=== PATIENT | female | born 1990 | race Caucasian/White ===

== ENCOUNTER 2017-01-17 22:39 | Emergency (ER) | payer BC, OTHER ==
[~2017-01-17] VITALS: Ht 154.9 cm; Wt 63.3 kg
--- OUTSIDE RECORDS SUMMARY | 2017-01-17 22:45 | XMS REPORT | Summary of Care ---
Author Organization Unknown Address Unknown Phone Unavailable Care Team Providers Care Rn Gastroenterology Name Role Phone Neeru Billy, Neville Unavailable Unavailable Marbella Oliveira PP Unavailable Unavailable Unavailable Functional Status Functional Status Health Issues* Name Dates Details Functional status health issues are not documented Status: Cognitive Status Health Issues* Name Dates Details Cognitive status health issues are not documented Status: Problems Name Dates Details Acute sinusitis (461.9, J01.90) Status: Active Urinary tract infection (599.0, N39.0) Status: Active Asthma (493.90, J45.909) Status: Active Folliculitis (704.8, L73.9) Status: Active Bronchitis (490, J40) Status: Active Eczema (692.9, L30.9) Status: Active Anxiety (300.00, F41.9) Status: Active Lower back pain (724.2, M54.5) Status: Active Dyspepsia (536.8, K30) Status: Active Depression (311, F32.9) Status: Active Anemia (285.9, D64.9) Status: Active Menorrhagia (626.2, N92.0) Status: Active Exposure to the flu (V01.79, Z20.828) Status: Active Viral infection (079.99, B34.9) Status: Active Influenza (487.1, J11.1) Status: Active Medications Name Dates Details Mirena 20 MCG/24HR Intrauterine Intrauterine Device inserted Quantity: 1 Sung Siddiqi M.D.* Started 08-Feb-2013 ActiveCranberry 500 MG Oral Capsule TAKE DIRECTED. * Refills: 0 , * Started ActiveIron 325 (65 Fe) MG Oral Tablet TAKE 1 TABLET DAILY WITH FOOD. * Quantity: 30 Refills: 0 , * Started [facility] Vitamin B-12 1000 MCG Oral Tablet TAKE 1 TABLET DAILY DIRECTED. * Refills: 0 , * Started ActiveFiber 625 MG Oral Tablet USE DIRECTED. * Refills: 0 , * Started ActiveStool Softener 100 MG Oral Capsule TAKE 1 CAPSULE DAILY. * Refills: 0 , * Started Active Allergies and Adverse Reactions Name Dates Details Seasonale TABS Status: Active Past Medical History Name Dates Details History of allergic rhinitis (V12.69, Z87.09) Status: Resolved History of Asthma (493.90, J45.909) Status: Resolved History of Human papilloma virus infection (079.4, B97.7) Status: Resolved History of infectious mononucleosis (V12.09, Z86.19) Status: Resolved Procedures Procedure Dates Details History of Dental Surgery History of Obstetrical Surgery Completed:30-Dec-2012 Procedures not documented Immunization Name Dates Details Tdap (Adacel) Lot #: [id number] Administered on:12-Dec-2012 Family History Unknown Family Member* Name Dates Details Family history of Hereditary Hemolytic Spherocytosis Comments: Family History Status: Active Grandmother* Name Dates Details Family history of Smoking Cigarettes Status: Active Grandfather* Name Dates Details Family history of Acute Myocardial Infarction (V17.3) Status: Active Family history of Stroke Syndrome (V17.1) Status: Active Family history of Epilepsy And Recurrent Seizures (V17.2) Status: Active Grandmother* Name Dates Details Family history of Renal Disorder Status: Active Family history of Tuberculosis Status: Active Family history of Heart Disease (V17.49) Status: Active Mother* Name Dates Details Family history of Drug Dependence Status: Active Family history of Stroke Syndrome (V17.1) Status: Active Family history of Epilepsy And Recurrent Seizures (V17.2) Status: Active Family history of Essential Hypertension Status: Active Father* Name Dates Details Family history of Tuberculosis Status: Active Family history of Hypercholesterolemia Status: Active Grandfather* Name Dates Details Family history of Acute Myocardial Infarction (V17.3) Status: Active Family history of Alcoholism Status: Active Social History Name Dates Details Smoking Status* Former smoker * Never smoker Vital Signs Date Test Result Details 21-Oct-2014 10:19 BP Systolic 102 mm[Hg] Status: BP Diastolic 70 mm[Hg] Status: Heart Rate 88 /min Status: Temperature 98.2 f Status: Weight 138 lb Status: Results Date Description Value Details 21-Oct-2014 10:47 INFLUENZA A/B ANTIGEN 5320 Comments: *Negative results do not exclude Influenza viral infection and could be confirmed with viral culture or Influenza molecular assays. Physician order would be required. * *INFLUENZA A/B ANTIGEN Negative (Better) Range: Negative Plan of Care Planned Observations* Name Dates Details Planned Goals not documented Goal Instructions * Instructions not documented Encounters Appointment; Marbella Oliveira Encounter Diagnosis: Problem not documented On 21-Oct-2014 10:15 Appointment; Marbella Oliveira Encounter Diagnosis: Problem not documented On 30-May-2014 14:00 Appointment; Marbella Oliveira Encounter Diagnosis: Problem not documented On 25-Feb-2014 15:30 Appointment; Marbella Oliveira Encounter Diagnosis: Problem not documented On 11-Feb-2014 11:30 Appointment; Marbella Oliveira Encounter Diagnosis: Problem not documented On 17-Dec-2013 15:15 Appointment; Irvin Son Encounter Diagnosis: Problem not documented On 11-Dec-2013 12:30 Appointment; Irvin Son Encounter Diagnosis: Problem not documented On 04-Dec-2013 12:30 Appointment; Irvin Son Encounter Diagnosis: Problem not documented On 23-Nov-2013 09:00 Appointment; Irvin Son Encounter Diagnosis: Problem not documented On 19-Nov-2013 12:30 Appointment; Marbella Oliveira Encounter Diagnosis: Problem not documented On 08-Nov-2013 14:45 Appointment; Marbella Oliveira Encounter Diagnosis: Problem not documented On 22-Oct-2013 13:00 Appointment; Marbella Oliveira Encounter Diagnosis: Problem not documented On 03-Sep-2013 14:15 Appointment; Marbella Oliveira Encounter Diagnosis: Problem not documented On 06-Aug-2013 10:00 Appointment; Marbella Oliveira Encounter Diagnosis: Problem not documented On 19-Jul-2013 13:00 Appointment; Sanjeev Vargas Encounter Diagnosis: Problem not documented On 27-Jun-2013 09:30 Appointment; Marbella Oliveira Encounter Diagnosis: Problem not documented On 07-Jun-2013 13:00 Appointment; Marbella Oliveira Encounter Diagnosis: Problem not documented On 15:45 Appointment; Marbella Oliveira Encounter Diagnosis: Problem not documented On 05-Mar-2013 14:30 Appointment; Sung Siddiqi Encounter Diagnosis: Problem not documented On 08-Feb-2013 14:45 Appointment; Marbella Oliveira Encounter Diagnosis: Problem not documented On 06-Feb-2013 15:00 Appointment; Vibha Aguirre Encounter Diagnosis: Problem not documented On 29-Jan-2013 16:40 Appointment; Sung Siddiqi Encounter Diagnosis: Problem not documented On 26-Dec-2012 13:15 Appointment; Sung Siddiqi Encounter Diagnosis: Problem not documented On 19-Dec-2012 13:15 Appointment; Sung Siddiqi Encounter Diagnosis: Problem not documented On 12-Dec-2012 13:00 Appointment; Sung Siddiqi Encounter Diagnosis: Problem not documented On 28-Nov-2012 13:15 Appointment; Sung Siddiqi Encounter Diagnosis: Problem not documented On 13-Nov-2012 14:30
--- OUTSIDE RECORDS SUMMARY | 2017-01-17 22:46 | XMS REPORT | Summary of Care ---
Author Author Sung Siddiqi M.D. Organization Unknown Address [address] [place], [place] [address] Phone Unavailable Care Team Providers Care Director Digital Catalogue Name Role Phone Neville Siddiqi M.D. Unavailable Unavailable Marbella Oliveira PP Unavailable Unavailable Unavailable Functional Status Functional Status Health Issues* Name Dates Details Functional status health issues are not documented Status: Cognitive Status Health Issues* Name Dates Details Cognitive status health issues are not documented Status: Problems Name Dates Details Asthma (493.90, J45.909) Status: Active Depression (311, F32.9) Status: Active Hyperemesis gravidarum, antepartum (643.03, O21.0) Status: Active Supervision of normal , second trimester (V22.1, Z34.82) Status: Active Vaginal Discharge (623.5, N89.8) Status: Active Shortness of breath during (646.83, O99.89) Status: Active 20 weeks gestation of (V22.2, Z3A.20) Status: Active Medications Name Dates Details /Folic Acid Oral Tablet TAKE 1 TABLET DAILY. Quantity: 30 Sung Siddiqi M.D.* Started 10-Jul-2015 Active Allergies and Adverse Reactions Name Dates Details No Known Drug Allergies Status: Active Past Medical History Name Dates Details History of acute sinusitis (V12.69, Z87.09) Status: Resolved History of allergic rhinitis (V12.69, Z87.09) Status: Resolved History of anemia (V12.3, Z86.2) Status: Resolved History of Anxiety (300.00, F41.9) Status: Resolved History of Asthma (493.90, J45.909) Status: Resolved History of bronchitis (V12.69, Z87.09) Status: Resolved History of Dyspepsia (536.8, K30) Status: Resolved History of eczema (V13.3, Z87.2) Status: Resolved History of Exposure to the flu (V01.79, Z20.828) Status: Resolved History of folliculitis (V13.3, Z87.2) Status: Resolved History of Human papilloma virus infection (079.4, B97.7) Status: Resolved History of infectious mononucleosis (V12.09, Z86.19) Status: Resolved History of influenza (V12.09, Z87.09) Status: Resolved History of low back pain (V13.59, Z87.39) Status: Resolved History of menorrhagia (V13.29, Z87.42) Status: Resolved History of urinary tract infection (V13.02, Z87.440) Status: Resolved History of viral infection (V12.09, Z86.19) Status: Resolved Procedures Procedure Dates Details History of Dental Surgery History of Obstetrical Surgery Completed:30-Dec-2012 Vaginitis Panel ( Trichomonas, Gardnerella, Kristen sp.) 5615 Ordered:2015 CBC w/ Auto Diff 7150 Ordered:23-Dec-2015 FERRITIN 3025 Ordered:23-Dec-2015 OB Dept- Ultrasound Screening Ordered:11-Nov-2015 Immunization Name Dates Details Tdap (Adacel) Lot #: [id number] Administered on:12-Dec-2012 Fluzone Intramuscular Injectable Lot #: [id number] Administered on:21-Aug-2015 Family History Unknown Family Member* Name Dates [...] smoker Vital Signs Date Test Result Details 23-Dec-2015 15:53 BP Systolic 102 mm[Hg] Status: BP Diastolic 64 mm[Hg] Status: Weight 138 lb Status: Body Mass Index Calculated 26.95 kg/m2 Status: Body Surface Area Calculated 1.59 m2 Status: 09-Dec-2015 11:00 BP Systolic 102 mm[Hg] Status: BP Diastolic 58 mm[Hg] Status: Weight 137 lb Status: Body Mass Index Calculated 26.76 kg/m2 Status: Body Surface Area Calculated 1.59 m2 Status: Results Date Description Value Details Results not documented Plan of Care Planned Observations* Name Dates Details Planned Goals not documented Goal Planned Encounters* Appointment; Provider: Sung Siddiqi On 15-Jul-2016 10:15 * Appointment; Provider: Sung Siddiqi On 03-Feb-2016 10:30 * Appointment; Provider: Sung Siddiqi On 20-Jan-2016 10:30 * Appointment; Provider: Marbella Oliveira On 30-Dec-2015 11:15 Instructions * Instructions not documented Encounters Appointment; Sung Siddiqi Encounter Diagnosis: Problem not documented On 23-Dec-2015 15:30 Appointment; Sung Siddiqi Encounter Diagnosis: Problem not documented On 09-Dec-2015 10:45 Appointment; Sung Siddiqi Encounter Diagnosis: Problem not documented On 11-Nov-2015 10:30 Appointment; Sung Siddiqi Encounter Diagnosis: Problem not documented On 28-Oct-2015 10:45 Appointment; Sung Siddiqi Encounter Diagnosis: Problem not documented On 14-Oct-2015 11:15 Appointment; Sung Siddiqi Encounter Diagnosis: Problem not documented On 09-Sep-2015 08:30 Appointment; Marbella Oliveira Encounter Diagnosis: Problem not documented On 21-Aug-2015 08:15 Appointment; Sung Siddiqi Encounter Diagnosis: Problem not documented On 10-Jul-2015 10:00 Appointment; Marbella Oliveira Encounter Diagnosis: Problem not documented On 21-Oct-2014 10:15 Appointment; Marbella Oliveira Encounter Diagnosis: Problem not documented On 30-May-2014 14:00 Appointment; Marbella Oliveira Encounter Diagnosis: Problem not documented On 25-Feb-2014 15:30 Appointment; Marbella Oliveira Encounter Diagnosis: Problem not documented On 11-Feb-2014 11:30
--- OUTSIDE RECORDS SUMMARY | 2017-01-17 22:46 | XMS REPORT | Summary of Care ---
Author Author Marbella Oliveira M.D. Organization Unknown Address Unknown Phone Unavailable Care Team Providers Care Slat Basket Maker Name Role Phone Marbella Oliveira Unavailable Unavailable Unavailable Unavailable Functional Status Functional Status Health Issues* Name Dates Details No known functional status health issues Status: Cognitive Status Health Issues* Name Dates Details No known cognitive status health issues Status: Problems Name Dates Details Acute sinusitis [...] Status: Active Menorrhagia (626.2, N92.0) Status: Active Medications Name Dates Details Mirena 20 MCG/24HR Intrauterine Intrauterine Device inserted Quantity: 1 EA * Started 08-Feb-2013 ActiveCranberry 500 MG Oral Capsule TAKE DIRECTED. * Refills: 0 * Started ActiveIron 325 (65 Fe) MG Oral Tablet TAKE 1 TABLET DAILY WITH FOOD. * Quantity: 30 Tablet Refills: 0 * Started [facility] Vitamin B-12 1000 MCG Oral Tablet TAKE 1 TABLET DAILY DIRECTED. * Refills: 0 * Started ActiveFiber 625 MG Oral Tablet USE DIRECTED. * Refills: 0 * Started ActiveStool Softener 100 MG Oral Capsule TAKE 1 CAPSULE DAILY. * Refills: 0 * Started ActiveSertraline HCl - 50 MG Oral Tablet TAKE 1 TABLET DAILY. * Quantity: 30 Tablet Refills: 3 * Started 08-Nov-2013 Active Allergies and Adverse Reactions Name Dates Details Seasonale TABS Status: Active Past Medical History Name Dates Details History of allergic rhinitis (V12.69, Z87.09) Status: Resolved History of infectious mononucleosis (V12.09, Z86.19) Status: Resolved Asthma (493.90, J45.909) Status: Resolved Human papilloma virus infection (079.4, B97.7) Status: Resolved Procedures Procedure Dates Details Dental Surgery Obstetrical Surgery Completed:30-Dec-2012 Procedures not documented Immunization Name Dates Details Tdap (Adacel) Lot #: [id number] Administered on:12-Dec-2012 Family History Unknown Family Member* Name Dates Details Hereditary Hemolytic Spherocytosis Comments: Family History Status: Active Grandmother* Name Dates Details Smoking Cigarettes Status: Active Grandfather* Name Dates Details Acute Myocardial Infarction (V17.3) Status: Active Stroke Syndrome (V17.1) Status: Active Epilepsy And Recurrent Seizures (V17.2) Status: Active Grandmother* Name Dates Details Renal Disorder Status: Active Tuberculosis Status: Active Heart Disease (V17.49) Status: Active Mother* Name Dates Details Drug Dependence Status: Active Stroke Syndrome (V17.1) Status: Active Epilepsy And Recurrent Seizures (V17.2) Status: Active Essential Hypertension Status: Active Father* Name Dates Details Tuberculosis Status: Active Hypercholesterolemia Status: Active Grandfather* Name Dates Details Acute Myocardial Infarction (V17.3) Status: Active Alcoholism Status: Active Social History Name Dates Details Former smoker (V15.82, Z87.891) Never smoker Smoking Status* Former smoker * Never smoker Vital Signs Date Test Result Details 25-Feb-2014 15:29 BP Systolic 105 mm[Hg] Status: BP Diastolic 64 mm[Hg] Status: Heart Rate 74 /min Status: Respiration Rate 18 /min Status: Weight 144 lb Status: Results Date Description Value Details Resulted on: 25-Feb-2014 16:35 CBC w/ Auto Diff 7150 Comments: Manual differential indicated. WBC 6.0 K/uL Range: 4.5-11.0=Better RBC 4.18 mil/uL Range: 3.60-5.00=Better HGB 12.9 g/dL Range: 12.0-16.0=Better HCT 39.0 % Range: 36.0-48.0=Better MCV 93.3 fL Range: 80.0-99.0=Better MCH 30.8 pg Range: 27.3-32.5=Better MCHC 33.0 % Range: 32.0-36.0=Better RDW 12.5 % Range: 11.6-14.8=Better PLATELETS 297 K/uL Range: 150-400=Better MPV 9.1 fL Range: 6.0-11.0=Better 16:42 BASIC METABOLIC PROFILE 1210 SODIUM 139 mmol/L Range: 133-144=Better POTASSIUM 3.9 mmol/L Range: 3.5-5.1=Better CHLORIDE 106 mmol/L Range: 98-110=Better CARBON DIOXIDE 26.1 mmol/L Range: 23.0-33.0=Better ANION GAP 7 mmol/L Range: 6-16=Better BUN 9 mg/dL Range: 7-18=Better CREATININE, SERUM 0.66 mg/dL Range: 0.43-1.13=Better EST GFR, >60 ml/min Range: >60=Better EST GFR, NON-AFR URUGUAYAN >60 ml/min Range: >60=Better Comments: EST GFR is reported in ml/min per 1.73 m2 of body surface area. For -[place], please multiple result by 1.2.----- BUN:CREATININE RATIO 14 Better GLUCOSE 92 mg/dL Range: 70-100=Better CALCIUM 8.9 mg/dL Range: 8.5-10.1=Better 17:02 Manual Differential 7400 SEGS 49 % Range: 37-80=Better BANDS 0 % Range: 0-7=Better LYMPH 42 % Range: 13-50=Better MONO 5 % Range: 0-12=Better EOSIN 4 % Range: 0-7=Better BASO 0 % Range: 0-3=Better DUC LYMPH 0 % Range: 0-0=Better META 0 % Range: 0-0=Better MYELO 0 % Range: 0-0=Better PRO 0 % Range: 0-0=Better BLAST 0 % Range: 0-0=Better NUC RBC 0 /100 WBC Range: 0-0=Better SMUDGE 0 /100 WBC Better PLATELET Adequate Range: Adequate=Better 17:04 FERRITIN 3025 FERRITIN 32 ng/mL Range: 10-291=Better 17:04 THYROID STIM. HORMONE 3602 THYROID STIM. HORMONE 1.409 uIU/mL Range: 0.550-4.780=Better Comments: No established reference ranges for infants and children <2 years of agePlease note new reference ranges effective 2013.----- 17:24 Vaginitis Panel ( Trichomonas, Gardnerella, Kristen sp.) 5615 T. VAGINALIS PROBE Negative Range: Negative=Better GARDNERELLA PROBE Negative Range: Negative=Better KRISTEN SP. PROBE Negative Range: Negative=Better Plan of Care Instructions* Instructions not documented Planned Observations* Name Dates Details Planned Goals not documented Goal Planned Encounters* Appointment; Provider: Marbella Oliveira On 30-May-2014 14:00 Instructions * No Known Instructions Encounters Appointment; Marbella Oliveira Diagnosis: Problem not documented On 25-Feb-2014 15:30 Appointment; Marbella Oliveira Diagnosis: Problem not documented On 11-Feb-2014 11:30 Appointment; Marbella Oliveira Diagnosis: Problem not documented On 17-Dec-2013 15:15 Appointment; Irvin Son Encounter Diagnosis: Problem not documented On 11-Dec-2013 12:30 Appointment; Irvin Son Encounter Diagnosis: Problem not documented On 04-Dec-2013 12:30 Appointment; Irvin Son Diagnosis: Problem not documented On 23-Nov-2013 09:00 Appointment; Irvin Son Encounter Diagnosis: Problem not documented On 19-Nov-2013 12:30 Appointment; Marbella Oliveira Diagnosis: Problem not documented On 08-Nov-2013 14:45 Appointment; Marbella Oliveira Encounter Diagnosis: Problem not documented On 22-Oct-2013 13:00 Appointment; Marbella Oliveira Encounter Diagnosis: Problem not documented On 03-Sep-2013 14:15 Appointment; Marbella Oliveira Encounter Diagnosis: Problem not documented On 06-Aug-2013 10:00 Appointment; Marbella Oliveira Diagnosis: Problem not documented On 19-Jul-2013 13:00 [...] Diagnosis: Problem not documented On 13-Nov-2012 14:30 Appointment; Marbella Oliveira Encounter Diagnosis: Problem not documented On 30-Oct-2012 14:00 Appointment; Sung Siddiqi Encounter Diagnosis: Problem not documented On 23-Oct-2012 10:30 Appointment; Sung Siddiqi Encounter Diagnosis: Problem not documented On 21-Sep-2012 13:30 Appointment; Sung Siddiqi Encounter Diagnosis: Problem not documented On 13-Sep-2012 14:30 Appointment; Sung Siddiqi Encounter Diagnosis: Problem not documented On 06-Sep-2012 13:00 Appointment; Sung Siddiqi Encounter Diagnosis: Problem not documented On 31-Aug-2012 13:30 Appointment; Sung Siddiqi Encounter Diagnosis: Problem not documented On 22-Aug-2012 11:00 Appointment; Sung Siddiqi Encounter Diagnosis: Problem not documented On 15-Aug-2012 13:45 Appointment; Sung Siddiqi Encounter Diagnosis: Problem not documented On 07-Aug-2012 13:30 Appointment; Sung Siddiqi Encounter Diagnosis: Problem not documented On 31-Jul-2012 14:15 Appointment; Vidhi Melendez Encounter Diagnosis: Problem not documented On 31-Jul-2012 11:00 Appointment; Sung Siddiqi Encounter Diagnosis: Problem not documented On 27-Jul-2012 14:30 Appointment; Sung Siddiqi Encounter Diagnosis: Problem not documented On 06-Jul-2012 14:30 Appointment; Wiliam Groves Encounter Diagnosis: Problem not documented On 30-Jun-2012 08:30 Appointment; Sung Siddiqi Encounter Diagnosis: Problem not documented On 29-Jun-2012 13:30 Appointment; Marbella Oliveira Encounter Diagnosis: Problem not documented On 19-Jun-2012 10:00 Appointment; Sung Siddiqi Encounter Diagnosis: Problem not documented On 31-May-2012 14:00 Appointment; Sung Siddiqi Encounter Diagnosis: Problem not documented On 09:00
--- OUTSIDE RECORDS SUMMARY | 2017-01-17 22:46 | XMS REPORT | Summary of Care ---
Author Author Sung Siddiqi M.D. Organization Unknown Address [address], [place] [address] Phone Unavailable Care Team Providers Care Staff Scientist Name Role Phone Neville Siddiqi M.D. Unavailable [...] Hyperemesis gravidarum, antepartum (643.03, O21.0) Status: Active Abnormal ultrasonic finding on screening of mother, antepartum (796.5 , O28.3) Status: Active Shortness of breath during (646.83, O99.89) Status: Active Supervision of normal , third trimester (V22.1, Z34.83) Status: Active Medications Name Dates Details /Folic [...] Dental Surgery History of Obstetrical Surgery Completed:30-Dec-2012 CBC w/ Auto Diff 7150 Ordered:16-Feb-2016 HEMOGLOBIN A1C 3507 Ordered:17-Feb-2016 Immunization Name Dates Details Tdap (Adacel) Lot #: [id number] Administered on:12-Dec-2012 Fluzone Intramuscular Injectable Lot #: [id number] Administered on:21-Aug-2015 Family History Unknown Family Member* [...] smoker Vital Signs Date Test Result Details 03-Feb-2016 10:36 BP Systolic 108 mm[Hg] Status: BP Diastolic 68 mm[Hg] Status: Weight 148 lb Status: Body Mass Index Calculated 28.9 kg/m2 Status: Body Surface Area Calculated 1.64 m2 Status: 27-Jan-2016 11:30 BP Systolic 108 mm[Hg] Status: BP Diastolic 62 mm[Hg] Status: Weight 142 lb Status: Body Mass Index Calculated 27.73 kg/m2 Status: Body Surface Area Calculated 1.61 m2 Status: Results Date Description Value Details 03-Feb-2016 10:35 OB Dept- Ultrasound Limited 2nd Trimester Comments: Exam Date: 02/03/2016 10:04Dictation Date: 02/03/2016 10:35 XOB GROWTH LTD EXAM (Better) Plan of Care Planned Observations* Name Dates Details Planned Goals not documented Goal Planned Encounters* Appointment; Provider: Sung Siddiqi On 15-Jul-2016 10:15 Instructions * Instructions not documented Encounters Appointment; Sung Siddiqi Encounter Diagnosis: Problem not documented On 17-Feb-2016 10:30 Appointment; Sung Siddiqi Encounter Diagnosis: Problem not documented On 03-Feb-2016 10:30 Appointment; Sung Siddiqi Encounter Diagnosis: Problem not documented On 27-Jan-2016 11:15 Appointment; Marbella Oliveira Encounter Diagnosis: Problem not documented On 27-Jan-2016 10:00 Appointment; Marbella Oliveira Encounter Diagnosis: Problem not documented On 30-Dec-2015 11:15 Appointment; Sung Siddiqi Encounter Diagnosis: Problem [...]
--- OUTSIDE RECORDS SUMMARY | 2017-01-17 22:46 | XMS REPORT | Summary of Care ---
Author Author Sung Siddiqi M.D. Organization Unknown Address [address], [place] [id number] Phone Unavailable Care Team Providers Care Green Chain Worker Name Role Phone Neville Siddiqi M.D. Unavailable [...] ( Trichomonas, Gardnerella, Kristen sp.) 5615 Ordered:2015 FERRITIN 3025 Ordered:23-Dec-2015 OB Dept- Ultrasound Screening Ordered:11-Nov-2015 Immunization Name Dates Details Tdap (Adacel) Lot #: [id number] Administered on:12-Dec-2012 Fluzone Intramuscular Injectable Lot #: [id number] Administered on:21-Aug-2015 Family History Unknown Family Member* [...] m2 Status: Results Date Description Value Details 23-Dec-2015 16:46 CBC w/ Auto Diff 7150 WBC 8.3 K/uL (Better) Range: 4.5-11.0 RBC 3.76 mil/uL (Better) Range: 3.60-5.00 HGB 12.0 g/dL (Better) Range: 12.0-16.0 HCT 34.2 % (Below low threshold) Range: 36.0-48.0 MCV 91.1 fL (Better) Range: 80.0-99.0 MCH 32.0 pg (Better) Range: 27.3-32.5 MCHC 35.1 % (Better) Range: 32.0-36.0 RDW 13.0 % (Better) Range: 11.6-14.8 PLATELETS 276 K/uL (Better) Range: 150-400 MPV 8.3 fL (Better) Range: 6.0-11.0 %NEUTRO 72.0 % (Better) Range: 37.0-80.0 %LYMPHS 20.6 % (Better) Range: 13.0-50.0 %MONO 4.4 % (Better) Range: 0.0-12.0 %EOS 1.7 % (Better) Range: 0.0-7.0 %BASO 0.3 % (Better) Range: 0.0-2.5 %JEYSON 1.1 % (Better) Range: 0.0-5.0 NEUTRO 6.0 K/uL (Better) Range: 2.0-6.9 LYMPHS 1.7 K/uL (Better) Range: 0.6-3.4 MONOS 0.4 K/uL (Better) Range: 0.0-0.9 EOS 0.1 K/uL (Better) Range: 0.0-0.7 BASO 0.0 K/uL (Better) Range: 0.0-0.2 Plan of Care Planned Observations* Name Dates Details Planned Goals not documented Goal Planned Encounters* Appointment; Provider: Sugn Siddiqi On 15-Jul-2016 10:15 * Appointment; Provider: [...]
--- OUTSIDE RECORDS SUMMARY | 2017-01-17 22:46 | XMS REPORT | Summary of Care ---
Author Author Sung Siddiqi M.D. Organization Unknown Address Unknown Phone Unavailable Care Team Providers Care Hotel Maintenance Engineer Name Role Phone Neville Siddiqi M.D. Unavailable Unavailable OliveiraMarbella Unavailable Unavailable Unavailable Unavailable Functional Status Name Dates Details Functional status health issues are not documented Status: Name Dates Details Cognitive status health issues are not documented Status: Problems Name Dates Details Asthma (493.90, J45.909) Status: Active Depression (311, F32.9) Status: Active exam (V24.2, Z39.2) Status: Active Medications Name Dates Details /Folic Acid TABS TAKE 1 TABLET DAILY. Quantity: 30 Neeru Billy, Sung Lozada * Start 10-Jul-2015 Active Allergies and Adverse Reactions Name Dates Details No Known Drug Allergies (Allergy) Status: Active Past Medical History Name Dates [...] of Dental Surgery History of Obstetrical Surgery Completed: 30-Dec-2012 Procedures not documented Immunization Name Dates Details Tdap (Adacel) Lot #: [id number] on: 12-Dec-2012 Fluzone INJ Lot #: [id number] on: 21-Aug-2015 Tdap (Adacel) Lot #: [id number] on: 17-Feb-2016 Family History Name Dates Details Family history of Hereditary Hemolytic Spherocytosis Comments: Family History Status: Active Name Dates Details Family history of Smoking Cigarettes Status: Active Name Dates Details Family history of Acute Myocardial Infarction (V17.3) Status: Active Family history of Stroke Syndrome (V17.1) Status: Active Family history of Epilepsy And Recurrent Seizures (V17.2) Status: Active Name Dates Details Family history of Renal Disorder Status: Active Family history of Tuberculosis Status: Active Family history of Heart Disease (V17.49) Status: Active Name Dates Details Family history of Drug Dependence Status: Active Family history of Stroke Syndrome (V17.1) Status: Active Family history of Epilepsy And Recurrent Seizures (V17.2) Status: Active Family history of Essential Hypertension Status: Active Name Dates Details Family history of Tuberculosis Status: Active Family history of Hypercholesterolemia Status: Active Name Dates Details Family history of Acute Myocardial Infarction (V17.3) Status: Active Family history of Alcoholism Status: Active Social History Name Dates Details - Status: Name Dates Details Former smoker Never smoker Vital Signs Date Test Result Details 17-Jun-2016 14:24 BP Systolic 122 mm[Hg] Status: Comments: Location: ; Position: BP Diastolic 78 mm[Hg] Status: Comments: Location: ; Position: Weight 142 lb Status: Body Mass Index Calculated 27.73 kg/m2 Status: Body Surface Area Calculated 1.61 m2 Status: Results Date Description Value Details Results not documented Plan of Care Name Dates Details Planned Observations Planned Goals not documented Planned Encounters Appointment; Provider: Sung Siddiqi M.D. On 20-Jun-2017 14:45 Instructions Name Dates Details Instructions not documented Encounters Appointment; Sung Siddiqi M.D. Encounter Diagnosis: Problem not documented On 13:00 Appointment; Sung Siddiqi M.D. Encounter Diagnosis: Problem not documented On 10:45 Appointment; Sung Siddiqi M.D. Encounter Diagnosis: Problem not documented On 10:45 Appointment; Sung Siddiqi M.D. Encounter Diagnosis: Problem not documented On 10:30 Appointment; Sung Siddiqi M.D. Encounter Diagnosis: Problem not documented On 10:30 Appointment; Sung Siddiqi M.D. Encounter Diagnosis: Problem not documented On 16-Mar-2016 10:30 Appointment; Sung Siddiqi M.D. Encounter Diagnosis: Problem not documented On 17-Feb-2016 10:30 Appointment; Sung Siddiqi M.D. Encounter Diagnosis: Problem not documented On 03-Feb-2016 10:30 Appointment; Sung Siddiqi M.D. Encounter Diagnosis: Problem not documented On 27-Jan-2016 11:15 Appointment; Marbella Oliveira M.D. Encounter Diagnosis: Problem not documented On 27-Jan-2016 10:00 Appointment; Marbella Oliveira M.D. Encounter Diagnosis: Problem not documented On 30-Dec-2015 11:15 Appointment; Sung Siddiqi M.D. Encounter Diagnosis: Problem not documented On 23-Dec-2015 15:30 Appointment; Sung Siddiqi M.D. Encounter Diagnosis: Problem not documented On 09-Dec-2015 10:45 Appointment; Sung Siddiqi M.D. Encounter Diagnosis: Problem not documented On 11-Nov-2015 10:30 Appointment; Sung Siddiqi M.D. Encounter Diagnosis: Problem not documented On 28-Oct-2015 10:45 Appointment; Sung Siddiqi M.D. Encounter Diagnosis: Problem not documented On 14-Oct-2015 11:15 Appointment; Sung Siddiqi M.D. Encounter Diagnosis: Problem not documented On 09-Sep-2015 08:30 Appointment; Marbella Oliveira M.D. Encounter Diagnosis: Problem not documented On 21-Aug-2015 08:15 Appointment; Sung Siddiqi M.D. Encounter Diagnosis: Problem not documented On 10-Jul-2015 10:00 Appointment; Marbella Oliveira M.D. Encounter Diagnosis: Problem not documented On 21-Oct-2014 10:15
--- OUTSIDE RECORDS SUMMARY | 2017-01-17 22:46 | XMS REPORT | Summary of Care ---
Author Author Sung Siddiqi M.D. Organization Unknown Address [address] [place], [place] [id number] Phone Unavailable Care Team Providers Care Design Coordinator Name Role Phone Neville Siddiqi M.D. Unavailable Unavailable Marbella Oliveira PP Unavailable Unavailable Unavailable Functional Status Functional Status Health Issues* Name Dates Details Functional status health issues are not documented Status: Cognitive Status Health Issues* Name Dates Details Cognitive status health issues are not documented Status: Problems Name Dates Details Asthma (493.90, J45.909) Status: Active Depression (311, F32.9) Status: Active Medications Name Dates Details Mirena 20 MCG/24HR Intrauterine Intrauterine Device inserted Quantity: 1 Sung Siddiqi M.D.* Started 08-Feb-2013 Active Allergies and Adverse Reactions Name Dates [...] Z87.09) Status: Resolved History of Dyspepsia (536.8, R10.13) Status: Resolved History of eczema (V13.3, Z87.2) [...] Name Dates Details Tdap (Adacel) Lot #: [id number] Administered on:12-Dec-2012 Family History Unknown Family Member* [...] smoker Vital Signs Date Test Result Details 10-Jul-2015 10:02 BP Systolic 108 mm[Hg] Status: BP Diastolic 62 mm[Hg] Status: Height 60.25 in Status: Weight 135 lb Status: Body Mass Index Calculated 26.15 kg/m2 Status: Body Surface Area Calculated 1.58 m2 Status: Results Date Description Value Details [...] Problem not documented On 06-Aug-2013 10:00 Appointment; Marblela Oliveira Encounter Diagnosis: Problem not documented On 19-Jul-2013 13:00
--- OUTSIDE RECORDS SUMMARY | 2017-01-17 22:46 | XMS REPORT | Summary of Care ---
Author Author Sung Siddiqi M.D. Organization Unknown Address [address] [place], [place] [id number] Phone Unavailable Care Team Providers Care Sustainment Logistics Analyst Name Role Phone Neville Siddiqi M.D. Unavailable Unavailable Marbella Oliveira PP Unavailable Unavailable Unavailable Functional Status Functional Status Health Issues* Name Dates Details Functional status health issues are not documented Status: Cognitive Status Health Issues* Name Dates Details Cognitive status health issues are not documented Status: Problems Name Dates Details Asthma (493.90, J45.909) Status: Active Depression (311, F32.9) Status: Active Supervision of normal , third [...] Dental Surgery History of Obstetrical Surgery Completed:30-Dec-2012 Gp B Strep ( GBS) 5031 Ordered: Immunization Name Dates Details Tdap (Adacel) Lot #: [id number] Administered on:12-Dec-2012 Fluzone Intramuscular Injectable Lot #: [id number] Administered on:21-Aug-2015 Tdap (Adacel) Lot #: [id number] Administered on:17-Feb-2016 Family History Unknown Family Member* Name Dates [...] smoker Vital Signs Date Test Result Details 11:36 BP Systolic 108 mm[Hg] Status: BP Diastolic 78 mm[Hg] Status: Weight 159 lb Status: Body Mass Index Calculated 31.05 kg/m2 Status: Body Surface Area Calculated 1.69 m2 Status: 10:29 BP Systolic 108 mm[Hg] Status: BP Diastolic 70 mm[Hg] Status: Weight 156 lb Status: Body Mass Index Calculated 30.47 kg/m2 Status: Body Surface Area Calculated 1.68 m2 Status: 16-Mar-2016 10:23 BP Systolic 102 mm[Hg] Status: BP Diastolic 60 mm[Hg] Status: Weight 156 lb Status: Body Mass Index Calculated 30.47 kg/m2 Status: Body Surface Area Calculated 1.68 m2 Status: Results Date Description Value Details Results not documented Plan of Care Planned Observations* Name Dates Details Planned Goals not documented Goal Planned Encounters* Appointment; Provider: Sung Siddiqi On 10:45 * Appointment; Provider: Sung Siddiqi On 10:45 * Appointment; Provider: Sung Siddiqi On 10:45 * Appointment; Provider: Sung Siddiqi On 10:45 Instructions * Instructions not documented Encounters Appointment; Sung Siddiqi Encounter Diagnosis: Problem not documented On 10:30 Appointment; Sung Siddiqi Encounter Diagnosis: Problem not documented On 10:30 Appointment; Sung Siddiqi Encounter Diagnosis: Problem not documented On 16-Mar-2016 10:30 Appointment; Sung Siddiqi Encounter Diagnosis: Problem [...] not documented On 09-Sep-2015 08:30 Appointment; Marbella Olievira Encounter Diagnosis: Problem not documented On 21-Aug-2015 08:15 Appointment; Sung Siddiqi Encounter Diagnosis: Problem not documented On 10-Jul-2015 10:00 Appointment; Marbella Oliveira Encounter Diagnosis: Problem not documented On 21-Oct-2014 10:15 Appointment; Marbella Oliveira Encounter Diagnosis: Problem not documented On 30-May-2014 14:00
--- OUTSIDE RECORDS SUMMARY | 2017-01-17 22:46 | XMS REPORT | Summary of Care ---
Author Author Sung Siddiqi M.D. Organization Unknown Address [address] [place], [place] [id number] Phone Unavailable Care Team Providers Care Flatcar Whacker Name Role Phone Neville Siddiqi M.D. Unavailable Unavailable Marbella Oliveira PP Unavailable Unavailable Unavailable Functional Status Functional Status Health Issues* Name Dates Details Functional status health issues are not documented Status: Cognitive Status Health Issues* Name Dates Details Cognitive status health issues are not documented Status: Problems Name Dates Details Asthma (493.90, J45.909) Status: Active Depression (311, F32.9) Status: Active Encounter for routine gynecological examination (V72.31, Z01.419) Status: Active Medications Name Dates Details /Folic [...] Name Dates Details Tdap (Adacel) Lot #: [id number] Administered on:12-Dec-2012 Family History Unknown Family Member* [...]
--- OUTSIDE RECORDS SUMMARY | 2017-01-17 22:46 | XMS REPORT ---
Author Author Sung Siddiqi Organization Unknown Address [address], [place] [id number] Phone Care Team Providers Care Orange Picker Machine Operator Name Role Phone Tee Tyson PP Unavailable Unavailable Reason for Referral No Reason for Referral was given. History of Present Illness No HPI available. Problems * Normal Routine History And Physical Adult (V70.0); (Active) * Asthma (493.90); (Active) * Eczema (692.9); (Active) * Urinary Tract Infection (599.0); (Active) Medication * Mirena 20 MCG/24HR Intrauterine Intrauterine Device; inserted; Start Date: (Active) * Triamcinolone Acetonide 0.1 % External Cream; Apply thin layer to affected area TID; Start Date: 02/15/2012; End Date: 02/08/2013 (Complete) * Analpram-HC 1-2.5 % Rectal Cream; apply to affected area TID; Start Date: ; End Date: 02/08/2013 (Complete) Allergies and Adverse Reactions * Seasonale TABS (Active) Past Medical History * History of Asthma (493.90); (Resolved) * History of Allergic Rhinitis (477.9); (Resolved) * History of Infectious Mononucleosis (075); (Resolved) * History of Human Papilloma Virus Infection (079.4); (Resolved) Procedures Procedure Procedure Date Date Completed Status Dental Surgery - - Active Obstetrical Surgery 12/30/2012 - Active Immunization * Tdap (Adacel) (Lot #: [id number]) - Administered on: 12/12/2012 Family History * Paternal grandfather's history of Acute Myocardial Infarction (V17.3); (Active) * Paternal grandfather's history of Stroke Syndrome (V17.1); (Active) * Paternal grandfather's history of Epilepsy And Recurrent Seizures (V17.2); (Active) * Paternal grandmother's history of Renal Disorder (Active) * Paternal grandmother's history of Tuberculosis (Active) * Paternal grandmother's history of Heart Disease (V17.49); (Active) * Maternal grandfather's history of Acute Myocardial Infarction (V17.3); (Active) * Maternal grandfather's history of Alcoholism (Active) * Maternal grandmother's history of Smoking Cigarettes (Active) * Paternal history of Tuberculosis (Active) * Paternal history of Hypercholesterolemia (Active) * Maternal history of Drug Dependence (Active) * Maternal history of Stroke Syndrome (V17.1); (Active) * Maternal history of Epilepsy And Recurrent Seizures (V17.2); (Active) * Maternal history of Essential Hypertension (Active) * Family history of Hereditary Hemolytic Spherocytosis (Active) Social History * Marital History - Currently (Active) * Never A Smoker (Active) * Former Smoker (V15.82); (Active) * Drug Use Comments: quit (Active) * 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) * Sexually Active (Active) * Uses Safety Equipment - Seatbelts (Active) Vital Signs Date Description Test Result 08 Feb 2013 03:36 PM recorded by: Earnestine Wilson Weight 133 lb 06 Feb 2013 03:14 PM recorded by: Sheeba Smith Weight 134 lb BP Systolic 110 mm[Hg] BP Diastolic 74 mm[Hg] Heart Rate 80 /min Treatment Plan * Urinalysis, Reflex to Microscopic or Culture PRN 8005 05/03/2012 Routine * Urine Culture PRN 8000 05/03/2012 Routine * PAP SMEAR 9600 05/31/2012 Routine * Urine Culture PRN 8000 07/27/2012 Routine * CHLAMYDIA & GONORRHOEAE DNA PROBES 5610 10/23/2012 Routine * CP Echo 10/30/2012 Routine Advance Directives * No Advance Directives available. Encounters * Appointment 02/08/2013
--- OUTSIDE RECORDS SUMMARY | 2017-01-17 22:47 | XMS REPORT | Summary of Care ---
Author Author Sung Siddiqi M.D. Organization Unknown Address [address], [place] [id number] Phone Unavailable Care Team Providers Care Sales And Marketing Manager Name Role Phone Neville Siddiqi M.D. Unavailable [...] (643.03, O21.0) Status: Active Supervision of normal in first trimester (V22.1, Z34.81) Status: Active Medications Name Dates Details /Folic Acid Oral Tablet TAKE 1 TABLET DAILY. Quantity: 30 Sung Siddiqi M.D.* Started 10-Jul-2015 ActiveDiclegis 10-10 MG Oral Tablet Delayed Release Take two(2) tabs @ HS. If no better by day 3 add one (1) tab every AM. If no better by day 4 add one tab in early pm. Not to exceed 4/day. * Quantity: 30 Refills: 2 Sugn Siddiqi M.D.* Started 09-Sep-2015 Active Allergies and Adverse Reactions Name Dates [...] Dental Surgery History of Obstetrical Surgery Completed:30-Dec-2012 HIV 1,2 ASSAY 3400 Ordered:09-Sep-2015 OBSTETRIC PANEL 2130 Ordered:09-Sep-2015 Urinalysis, Reflex to Microscopic or Culture PRN 8005 Ordered:09-Sep-2015 Vaginitis Panel ( Trichomonas, Gardnerella, Kristen sp.) 5615 Ordered:2014 Immunization Name Dates Details Tdap (Adacel) Lot #: [id number] Administered on:12-Dec-2012 Fluzone Intramuscular Injectable Lot #: [id number] Administered on:21-Aug-2015 Family History Unknown Family Member* [...] smoker Vital Signs Date Test Result Details 09-Sep-2015 08:26 BP Systolic 114 mm[Hg] Status: BP Diastolic 70 mm[Hg] Status: Height 60 in Status: Weight 135 lb Status: Body Mass Index Calculated 26.37 kg/m2 Status: Body Surface Area Calculated 1.58 m2 Status: Results Date Description Value Details 02-Sep-2015 09:09 SERUM TEST 8020 SERUM TEST Positive (Abnormal) Range: Negative Comments: Internal Control: Acceptable----- Plan of Care Planned Observations* Name Dates Details Planned Goals not documented Goal Planned Encounters* Appointment; Provider: Sung Siddiqi On 15-Jul-2016 10:15 * Appointment; Provider: Sung Siddiqi On 07-Oct-2015 13:30 Instructions * Instructions not documented Encounters Appointment; Sung Siddiqi Encounter Diagnosis: Problem not documented On 09-Sep-2015 08:30 Appointment; Marbella Oliveira Encounter Diagnosis: Problem not documented On 21-Aug-2015 08:15 Appointment; Sung Siddiiq Encounter Diagnosis: Problem not documented On 10-Jul-2015 10:00 Appointment; Marbella Oliveira Diagnosis: Problem not documented On 21-Oct-2014 10:15 Appointment; Marbella Oliveira Diagnosis: Problem not documented On 30-May-2014 14:00 Appointment; Marbella Oliveira Diagnosis: Problem not documented [...] Problem not documented On 19-Nov-2013 12:30 Appointment; Oliveira, Marbella Encounter Diagnosis: Problem not documented On 08-Nov-2013 14:45 Appointment; Marbella Oliveira Encounter Diagnosis: Problem not documented On 22-Oct-2013 13:00
--- OUTSIDE RECORDS SUMMARY | 2017-01-17 22:47 | XMS REPORT | Summary of Care ---
Author Author Marbella Oliveira M.D. Unknown Address [address], [place] [id number] Phone Unavailable Care Team Providers Care Family Medicine Physician Assistant Name Role Phone Neeru Billy, E Unavailable Unavailable Marbella Oliveira PP Unavailable Unavailable [...] WITH FOOD. * Quantity: 30 Refills: 0 * Started [facility] Vitamin B-12 1000 MCG Oral Tablet TAKE 1 TABLET DAILY DIRECTED. * Refills: 0 * Started ActiveFiber 625 MG Oral Tablet USE DIRECTED. * Refills: 0 * Started ActiveStool Softener 100 MG Oral Capsule TAKE 1 CAPSULE DAILY. * Refills: 0 * Started Active Allergies and Adverse Reactions [...] Name Dates Details Tdap (Adacel) Lot #: [id number] Administered on:12-Dec-2012 Family History Unknown Family Member* [...] Instructions not documented Encounters Appointment; Marbella Oliveira Diagnosis: Problem not [...]
--- OUTSIDE RECORDS SUMMARY | 2017-01-17 22:47 | XMS REPORT ---
Author Author GENERATED, SYSTEM Organization Unknown Address Unknown Phone Unavailable Care Team Providers Care Engineer Name Role Phone MD COLE, RHONDA [phone] Reason For Visit Chief Complaint LABOR Social History Functional Status Vital Signs Results Problems Encounter Diagnosis No relevant problems exist. Additional Problems * Normal Labor Comment:Problem resolved by [facility] Workflow upon Discharge, Status:Resolved. Encounters Encounter Diagnosis No relevant problems exist. Plan of Care Procedures * Completed , on 12/30/2012 12:00 AM * Completed , on 12/30/2012 12:00 AM * Completed , on 12/30/2012 12:00 AM Immunizations No immunizations administered or ordered. Hospital Course Hospital Discharge Instructions Allergies, Adverse Reactions, Alerts * Latex Allergy has not been assessed. * IV Contrast Allergy has not been assessed. * No Known Drug Allergies. Medication Medication reconciliation has not been performed.
--- OUTSIDE RECORDS SUMMARY | 2017-01-17 22:47 | XMS REPORT | Summary of Care ---
Author Author Marbella Oliveira M.D. Unknown Address [address] [place], [place] [phone] Phone Unavailable Care Team Providers Care Junior Paralegal Name Role Phone Neeru Billy, Neville Unavailable [...] weeks gestation of (V22.2, Z3A.20) Status: Active Abnormal ultrasonic finding on screening of mother, antepartum (796.5 , O28.3) Status: Active 26 weeks gestation of (V22.2, Z3A.26) Status: Active Medications Name Dates Details /Folic [...] Dental Surgery History of Obstetrical Surgery Completed:30-Dec-2012 OB Dept- Ultrasound Screening Ordered:11-Nov-2015 OB Dept- Ultrasound Limited 2nd Trimester Ordered:24-Dec-2015 Immunization Name Dates Details Tdap (Adacel) Lot #: [id number] Administered on:12-Dec-2012 Fluzone Intramuscular Injectable Lot #: [id number] Administered on:21-Aug-2015 Family History Unknown Family Member* [...] smoker Vital Signs Date Test Result Details 30-Dec-2015 11:40 BP Systolic 106 mm[Hg] Status: BP Diastolic 70 mm[Hg] Status: Temperature 98.6 f Status: Heart Rate 82 /min Status: Weight 139 lb Status: O2 SAT 98 % Status: Body Mass Index Calculated 27.15 kg/m2 Status: Body Surface Area Calculated 1.6 m2 Status: 23-Dec-2015 15:53 BP Systolic 102 mm[Hg] Status: [...] 0.0-0.7 BASO 0.0 K/uL (Better) Range: 0.0-0.2 17:20 FERRITIN 3025 FERRITIN 22 ng/mL (Better) Range: 10-291 24-Dec-2015 13:41 Vaginitis Panel ( Trichomonas, Gardnerella, Kristen sp.) 5615 T. VAGINALIS PROBE Negative (Better) Range: Negative GARDNERELLA PROBE Negative (Better) Range: Negative KRISTEN SP. PROBE Negative (Better) Range: Negative Plan of Care Planned Observations* Name Dates Details Planned Goals not documented Goal Planned Encounters* Appointment; Provider: Sung Siddiqi On 15-Jul-2016 10:15 * Appointment; Provider: Sung Siddiqi On 03-Feb-2016 10:30 * Appointment; Provider: Marbella Oliveira On 27-Jan-2016 10:00 * Appointment; Provider: Sung Siddiqi On 20-Jan-2016 10:30 Instructions * Instructions not documented Encounters Appointment; [...]
--- OUTSIDE RECORDS SUMMARY | 2017-01-17 22:47 | XMS REPORT | Summary of Care ---
Author Author Sung Siddiqi M.D. Organization Unknown Address [address] [place], [place] [phone] Phone Unavailable Care Team Providers Care Chef'S Assistant Name Role Phone Neville Siddiqi M.D. Unavailable Unavailable Marbella Olvieira PP Unavailable Unavailable Unavailable Functional Status Functional Status Health Issues* Name Dates Details Functional status health issues are not documented Status: Cognitive Status Health Issues* Name Dates Details Cognitive status health issues are not documented Status: Problems Name Dates Details Asthma (493.90, J45.909) Status: Active Depression (311, F32.9) Status: Active Encounter for routine gynecological examination (V72.31, Z01.419) Status: Active Amenorrhea (626.0, N91.2) Status: Active Medications Name Dates Details /Folic [...] Dental Surgery History of Obstetrical Surgery Completed:30-Dec-2012 SERUM TEST 8020 Ordered:01-Sep-2015 Immunization Name Dates Details Tdap (Adacel) Lot #: [id number] Administered on:12-Dec-2012 Fluzone Intramuscular Injectable Lot #: [id number] Administered on:21-Aug-2015 Family History Unknown Family Member* [...] smoker Vital Signs Date Test Result Details No Known Vitals to report Results Date Description Value Details Results not [...]
--- OUTSIDE RECORDS SUMMARY | 2017-01-17 22:47 | XMS REPORT | Summary of Care ---
Author Organization Unknown Address Unknown Phone Unavailable Care Team Providers Care Education Reviewer Name Role Phone Neeru Billy, E Unavailable [...] Name Dates Details Tdap (Adacel) Lot #: [id number] Administered on:12-Dec-2012 Fluzone Intramuscular Injectable Lot #: [id number] Administered on:21-Aug-2015 Tdap (Adacel) Lot #: [id number] Administered on:17-Feb-2016 Family History Unknown Family Member* [...] smoker Vital Signs Date Test Result Details 10:29 BP Systolic 108 mm[Hg] Status: BP [...] 10:15 * Appointment; Provider: Sung Siddiqi On 10:30 Instructions * Instructions not documented Encounters [...]
--- OUTSIDE RECORDS SUMMARY | 2017-01-17 22:47 | XMS REPORT | Summary of Care ---
Author Organization Unknown Address Unknown Phone Unavailable Care Team Providers Care Head Screen Worker Name Role Phone Neeru Billy, Neville Unavailable [...] Name Dates Details Tdap (Adacel) Lot #: [id number] Administered on:12-Dec-2012 Family History Unknown Family Member* [...] Siddiqi On 15-Jul-2016 10:15 * Appointment; Provider: Marbella Oliveira On 21-Aug-2015 08:15 Instructions * Instructions not documented Encounters Appointment; [...] Problem not documented On 23-Nov-2013 09:00 Appointment; Irivn Son Encounter Diagnosis: Problem not documented On 19-Nov-2013 12:30 Appointment; Marbella Oliveira Diagnosis: Problem not documented On 08-Nov-2013 14:45 Appointment; Marbella Oliveira Diagnosis: Problem not documented On 22-Oct-2013 13:00 Appointment; Marbella Oliveira Encounter Diagnosis: Problem not documented On 03-Sep-2013 14:15
--- OUTSIDE RECORDS SUMMARY | 2017-01-17 22:47 | XMS REPORT | Summary of Care ---
Author Organization Unknown Address Unknown Phone Unavailable Care Team Providers Care Lead Tank Mechanic Name Role Phone Neeru Billy, Neville Unavailable [...] pain (724.2, M54.5) Status: Active Dyspepsia (536.8, R10.13) Status: Active Depression (311, F32.9) Status: Active [...] Name Dates Details Tdap (Adacel) Lot #: [id number] Administered on:12-Dec-2012 Family History Unknown Family Member* [...] Planned Encounters* Appointment; Provider: Sung Siddiqi On 03-Jul-2015 10:45 Instructions * Instructions not documented Encounters [...]
--- OUTSIDE RECORDS SUMMARY | 2017-01-17 22:47 | XMS REPORT | Summary of Care ---
Author Author [facility] Organization [facility] Address [address] [place] [address] Phone Care Team Providers Care Archivist Military History Name Role Phone Neville Siddiqi M.D. Unavailable Unavailable Marbella Oliveira Unavailable Unavailable Unavailable Unavailable Functional Status Name Dates Details Functional status health issues are not documented Status: Name Dates Details Cognitive status health issues are not documented Status: Problems Name Dates Details Asthma (493.90, J45.909) Status: Active Depression (311, F32.9) Status: Active Medications Name Dates Details /Folic Acid TABS TAKE 1 TABLET DAILY. Quantity: 30 Neeru Billy, Sung E * Start 10-Jul-2015 Active Allergies and Adverse [...] Name Dates Details Tdap (Adacel) Lot #: [id number] on: 12-Dec-2012 Fluzone INJ Lot #: [id number] on: 21-Aug-2015 Tdap (Adacel) Lot #: [id number] on: 17-Feb-2016 Family History Name Dates Details [...] smoker Vital Signs Date Test Result Details 13:05 BP Systolic 118 mm[Hg] Status: Comments: Location: ; Position: BP Diastolic 80 mm[Hg] Status: Comments: Location: ; Position: Weight 163 lb Status: Body Mass Index Calculated 31.83 kg/m2 Status: Body Surface Area Calculated 1.71 m2 Status: 10:31 BP Systolic 122 mm[Hg] Status: Comments: Location: ; Position: BP Diastolic 70 mm[Hg] Status: Comments: Location: ; Position: Weight 160 lb Status: Body Mass Index Calculated 31.25 kg/m2 Status: Body Surface Area Calculated 1.7 m2 Status: 10:37 BP Systolic 120 mm[Hg] Status: Comments: Location: ; Position: BP Diastolic 78 mm[Hg] Status: Comments: Location: ; Position: Weight 162 lb Status: Body Mass Index Calculated 31.64 kg/m2 Status: Body Surface Area Calculated 1.71 m2 Status: Results Date Description Value Details 17:00 Vaginitis Panel ( Trichomonas, Gardnerella, Kristen sp.) 5615 T. VAGINALIS PROBE Negative Range: Negative GARDNERELLA PROBE Negative Range: Negative KRISTEN SP. PROBE Negative Range: Negative Plan of Care Name Dates Details Planned Observations Planned Goals not documented Planned Encounters Appointment; Provider: Sung Siddiqi M.D. On 16-Jun-2016 11:15 Appointment; Provider: Sung Siddiqi M.D. On 16:00 Instructions Name Dates Details Instructions not documented [...] documented On 21-Oct-2014 10:15 Appointment; Marbella Oliveira M.D. Encounter Diagnosis: Problem not documented On 30-May-2014 14:00
--- OUTSIDE RECORDS SUMMARY | 2017-01-17 22:47 | XMS REPORT ---
Author Author [facility] Organization Unknown Address [address] [place], [place] [id number] Phone Care Team Providers Care Elevator Repair Mechanic Name Role Phone Tee Tyson PP Unavailable Unavailable Reason for Referral No Reason for Referral was given. History of Present Illness No HPI available. Problems * Normal Routine History And Physical Adult (V70.0); (Active) * Asthma (493.90); (Active) * Eczema (692.9); (Active) Medication * Triamcinolone Acetonide 0.1 % External Cream; Apply thin layer to affected area TID; Start Date: 02/15/2012 (Active) * Analpram-HC 1-2.5 % Rectal Cream; apply to affected area TID; Start Date: ; End Date: (Active) Allergies and Adverse Reactions * Seasonale TABS (Active) Past Medical History * History of Asthma (493.90); (Resolved) * History of Allergic Rhinitis (477.9); (Resolved) * History of Infectious Mononucleosis (075); (Resolved) * History of Human Papilloma Virus Infection (079.4); (Resolved) Procedures Procedure Procedure Date Date Completed Status Dental Surgery - - Active Obstetrical Surgery 12/30/2012 - Active Immunization * Tdap (Adacel) (Lot #: [id number]) - Administered on: 12/12/2012 Family History * [...] Use Comments: quit (Active) * 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 Encounters * AUDIT 01/30/2013 * POSTPART , Provider: Neeru Almaraz, Status: Pen , Time: 2:45 PM 2012
--- OUTSIDE RECORDS SUMMARY | 2017-01-17 22:47 | XMS REPORT | Summary of Care ---
Author Author [facility] Organization [facility] Address [address] [place] [address] Phone Care Team Providers Care Numerical Control Router Operator Name Role Phone Neville Siddiqi M.D. Unavailable [...] TABS TAKE 1 TABLET DAILY. Quantity: 30 Sung Siddiqi M.D. * Start 10-Jul-2015 Active Allergies and Adverse [...] Name Dates Details Tdap (Adacel) Lot #: [id number] on: 12-Dec-2012 Fluzone INJ Lot #: [id number] on: 21-Aug-2015 Tdap (Adacel) Lot #: [id number] on: 17-Feb-2016 Family History Name Dates Details [...] Provider: Sung Siddiqi M.D. On 20-Jun-2017 14:45 Appointment; Provider: Sung Siddiqi M.D. On 16:00 Instructions Name Dates Details Instructions not documented Encounters Appointment; Sung Siddiqi M.D. Encounter Diagnosis: Problem not documented On 17-Jun-2016 14:30 Appointment; Sung Siddiqi M.D. Encounter Diagnosis: Problem [...]
--- OUTSIDE RECORDS SUMMARY | 2017-01-17 22:48 | XMS REPORT | Summary of Care ---
Author Author Sung Siddiqi M.D. Unknown Address Unknown Phone Unavailable Care Team Providers Care Fiberglass Luggage Molder Name Role Phone Neville Siddiqi M.D. Unavailable Unavailable Marbella Oliveira PP Unavailable Unavailable Unavailable Functional Status Functional Status Health Issues* Name Dates Details Functional status health issues are not documented Status: Cognitive Status Health Issues* Name Dates Details Cognitive status health issues are not documented Status: Problems Name Dates Details Asthma (493.90, J45.909) Status: Active Depression (311, F32.9) Status: Active Vaginal Discharge (623.5, N89.8) Status: Active Supervision of normal , third [...] ( Trichomonas, Gardnerella, Kristen sp.) 5615 Ordered:2015 Immunization Name Dates Details Tdap (Adacel) Lot #: [id number] Administered on:12-Dec-2012 Fluzone Intramuscular Injectable Lot #: [id number] Administered on:21-Aug-2015 Tdap (Adacel) Lot #: [id number] Administered on:17-Feb-2016 Family History Unknown Family Member* [...] smoker Vital Signs Date Test Result Details 10:37 BP Systolic 120 mm[Hg] Status: BP Diastolic 78 mm[Hg] Status: Weight 162 lb Status: Body Mass Index Calculated 31.64 kg/m2 Status: Body Surface Area Calculated 1.71 m2 Status: 11:36 BP Systolic 108 mm[Hg] Status: BP Diastolic 78 mm[Hg] Status: Weight 159 lb Status: Body Mass Index Calculated 31.05 kg/m2 Status: Body Surface Area Calculated 1.69 m2 Status: 10:29 BP Systolic 108 mm[Hg] Status: BP Diastolic 70 mm[Hg] Status: Weight 156 lb Status: Body Mass Index Calculated 30.47 kg/m2 Status: Body Surface Area Calculated 1.68 m2 Status: Results Date Description Value Details 12:08 Gp B Strep ( GBS) 5031 Comments: Penicillin Allergy: No Gp B Strep Negative (Better) Range: Negative Plan of Care Planned Observations* Name Dates Details Planned Goals not documented Goal Planned Encounters* Appointment; Provider: Sung Siddiqi On 10:45 * Appointment; Provider: Sung Siddiqi On 10:45 * Appointment; Provider: Sung Siddiqi On 10:45 Instructions * Instructions not documented Encounters Appointment; Sung Siddiqi Encounter Diagnosis: Problem not documented On 10:45 Appointment; Sung Siddiqi Encounter Diagnosis: Problem not documented On 10:30 Appointment; Sung Siddiqi Encounter Diagnosis: Problem not documented On 10:30 Appointment; Sung Siddiqi Encounter Diagnosis: Problem not documented On 16-Mar-2016 10:30 Appointment; Snug Siddiqi Encounter Diagnosis: Problem not documented On [...]
--- OUTSIDE RECORDS SUMMARY | 2017-01-17 22:48 | XMS REPORT ---
Author [facility] Organization Unknown Address Unknown Phone Unavailable Care Team Providers Care Facing Baster Jumpbasting Name Role Phone MD COLE, RHONDA [phone] Reason For Visit Chief Complaint LABOR PAIN Social History Functional Status Vital Signs Results [...] Discharge Instructions Allergies, Adverse Reactions, Alerts * No Latex Allergy. * No IV Contrast Allergy. * No Known Drug Allergies. Medication Medication reconciliation has not been performed.
--- OUTSIDE RECORDS SUMMARY | 2017-01-17 22:48 | XMS REPORT ---
Author Author [facility] Organization Unknown Address Unknown Phone Unavailable Care Team Providers Care Instructor Wastewater Treatment Plant Name Role Phone MD COLE, RHONDA [phone] Reason For Visit Chief Complaint INDUCTION Social History Functional Status Vital Signs Results Blood Gas from 05/05/2016 2:11 PM*ART. CORD BL. PH 7.160 (7.130-7.430 ) *ART. CORD BL. PCO2 57.0 MM HG (30.0-60.0 MM HG) *ART. CORD BL. PO2 <40 MM HG H (5-25 MM HG) *ART. CORD BL. BE -9.1 L (-2.5-11.0 ) *REYES. CORD BL. PH 7.330 (7.190-7.490 ) *REYES. CORD BL. PCO2 33.0 MM HG (30.0-60.0 MM HG) *REYES. CORD BL. PO2 <40 MM HG (15-45 MM HG) *REYES. CORD BL. BE -7.5 L (-2.5-9.0 ) Chemistry from 05/05/2016 6:00 AM*COCAINE NEGATIVE (NEG <150 ) *PCP NEGATIVE (NEG <25 ) *CANNABINOIDS NEGATIVE (NEG <50 ) *AMPHETAMINE NEGATIVE (NEG <500 ) *OPIATES NEGATIVE (NEG <300 ) Hematology from 05/06/2016 5:05 AMWBC 10.3 X10e3/UL (3.6-11.2 X10e3/UL) RBC 3.64 X10e6/UL (3.63-4.92 X10e6/UL) HEMOGLOBIN 10.2 G/DL L (11.0-14.3 G/DL) HEMATOCRIT 31.1 % L (31.2-41.9 %) *MCV 85.4 FL (79.0-98.0 FL) *MCH 28.1 PG (27.0-33.0 PG) *MCHC 32.9 G/DL (32.0-36.0 G/DL) *RDW 13.4 % (12.3-17.0 %) *RDWSD 40.7 (37.1-47.8 ) PLATELET 224 X10e3/UL (159-386 X10e3/UL) *MPV 9.4 FL (7.4-10.4 FL) AUTOMATED DIFF PERFORMED SEGS 72.5 % *LYMPHOCYTES 18.5 % *MONOCYTES 6.9 % *EOSINOPHILS 1.7 % *BASOPHILS 0.4 % *ABSOLUTE NEUTROPHILS 7.50 X10e3/UL (1.80-7.80 X10e3/UL) *ABSOLUTE LYMPHOCYTES 1.90 X10e3/UL (1.00-3.00 X10e3/UL) *ABSOLUTE MONOCYTES 0.70 X10e3/UL (0.30-1.00 X10e3/UL) *ABSOLUTE EOSINOPHILS 0.20 X10e3/UL (0.00-0.50 X10e3/UL) *ABSOLUTE BASOPHILS 0.00 X10e3/UL (0.00-0.20 X10e3/UL) Hematology from 05/05/2016 4:56 AMWBC 8.7 X10e3/UL (3.6-11.2 X10e3/UL) RBC 3.90 X10e6/UL (3.63-4.92 X10e6/UL) HEMOGLOBIN 11.0 G/DL (11.0-14.3 G/DL) HEMATOCRIT 33.4 % (31.2-41.9 %) *MCV 85.7 FL (79.0-98.0 FL) *MCH 28.3 PG (27.0-33.0 PG) *MCHC 33.0 G/DL (32.0-36.0 G/DL) *RDW 13.3 % (12.3-17.0 %) *RDWSD 40.7 (37.1-47.8 ) PLATELET 248 X10e3/UL (159-386 X10e3/UL) *MPV 9.2 FL (7.4-10.4 FL) AUTOMATED DIFF PERFORMED SEGS 68.6 % *LYMPHOCYTES 21.7 % *MONOCYTES 6.9 % *EOSINOPHILS 2.2 % *BASOPHILS 0.6 % *ABSOLUTE NEUTROPHILS 6.00 X10e3/UL (1.80-7.80 X10e3/UL) *ABSOLUTE LYMPHOCYTES 1.90 X10e3/UL (1.00-3.00 X10e3/UL) *ABSOLUTE MONOCYTES 0.60 X10e3/UL (0.30-1.00 X10e3/UL) *ABSOLUTE EOSINOPHILS 0.20 X10e3/UL (0.00-0.50 X10e3/UL) *ABSOLUTE BASOPHILS 0.10 X10e3/UL (0.00-0.20 X10e3/UL) Problems Encounter Diagnosis * Vaginal Delivery Status:Active. Additional Problems * Normal Labor Comment:Problem resolved by Soarian Workflow upon Discharge, Status:Resolved. Encounters Encounter Diagnosis * Vaginal Delivery Status:Active. Plan of Care Procedures * Completed , on 12/30/2012 12:00 AM * Completed , on 12/30/2012 12:00 AM * Completed , on 12/30/2012 12:00 AM Immunizations No immunizations administered or ordered. Hospital Course Hospital Discharge Instructions Allergies, Adverse Reactions, Alerts * No Latex Allergy. * No IV Contrast Allergy. * No Known Drug Allergies. Medication It is the responsibility of the patient or patient medical device sales representative to confirm the list of medications with either the patient's personal care provider or the patient's follow-up care provider to ensure the patient has an appropriate list of medications to take at home. Discharge medications New medications* Tylenol with codeine 1 or 2 tabs every 4 hours as needed for pain * Motrin 800 mg tab every 8 hours as needed for pain. Stopped medications* None
--- OUTSIDE RECORDS SUMMARY | 2017-01-17 22:48 | XMS REPORT | Summary of Care ---
Author Author [facility] M.D. Unknown Address [address], [place] [id number] Phone Unavailable Care Team Providers Care Sisal Picker Name Role Phone Neeru Billy, Neville Unavailable [...] Active Vaginal Discharge (623.5, N89.8) Status: Active 20 weeks gestation of (V22.2, Z3A.20) Status: Active Abnormal ultrasonic finding on screening of mother, antepartum (796.5 , O28.3) Status: Active 26 weeks gestation of (V22.2, Z3A.26) Status: Active Shortness of breath during (646.83, O99.89) Status: Active Medications Name Dates Details /Folic [...] of Obstetrical Surgery Completed:30-Dec-2012 OB Dept- Ultrasound Limited 2nd Trimester Ordered:24-Dec-2015 Immunization Name Dates Details Tdap (Adacel) Lot #: [id number] Administered on:12-Dec-2012 Fluzone Intramuscular Injectable Lot #: [id number] Administered on:21-Aug-2015 Family History Unknown Family Member* [...] KRISTEN SP. PROBE Negative (Better) Range: Negative 23-Dec-2015 15:57 OB Dept- Ultrasound Screening Comments: Exam Date: 10/2015 15:08Dictation Date: 12/23/2015 15:57 XOB SINGLE OB (Better) Plan of Care Planned Observations* Name [...]
--- OUTSIDE RECORDS SUMMARY | 2017-01-17 22:48 | XMS REPORT | Summary of Care ---
Author Author [facility] Organization [facility] Address [address] [place] [address] Phone Care Team Providers Care Legal Support Assistant Name Role Phone Neville Siddiqi M.D. [...] Name Dates Details Tdap (Adacel) Lot #: [id number] on: 12-Dec-2012 Fluzone INJ Lot #: [id number] on: 21-Aug-2015 Tdap (Adacel) Lot #: [id number] on: 17-Feb-2016 Family History Name Dates Details [...]
[2017-01-17 22:54] VITALS: Ht 154.9 cm; Wt 63.3 kg
--- NOTE | 2017-01-17 23:07 | ERPDOC ---
Departure Disposition Decision Date: Jan 18, 2017 Disposition Decision Time: 03:17 (GRACIELA LEAVITT MD) Disposition: 01 DISCHARGED HOME, SELF-CARE Impression Impression (DIEGO WAN APRN) Impression: Primary Impression: Colitis Severity: Moderate (GRACIELA LEAVITT MD) Condition: Stable Seen By: Physician only (GRACIELA LEAVITT MD) Referrals: LELA FAITH DO (PCP) Patient Instructions: Colitis (ED) Problems/Meds/Labs Reviewed?: Yes Medications reviewed and manag: Yes (GRACIELA LEAVITT MD) Additional Instructions: Flagyl 500 mg, 3 times daily. Absolutely no alcohol while taking this medication. Please follow up with her primary care provider within the next week. You still have a stool culture ordered, we will send you with the requisite equipment for the sample. Mental Status: Alert, Oriented (DIEGO WAN APRN) Follow up care ordered?: Yes Mental Status: Alert, Oriented (GRACIELA LEAVITT MD) Scripts Ondansetron (Zofran Odt) 4 Mg Tab.rapdis 4 MG PO Q6HR for NAUSEA, #30 TAB Oral disintegrating tablet Prov: GRACIELA LEAVITT MD 01/18/17 Metronidazole (Flagyl) 500 Mg Tablet 500 MG PO TID, #30 TAB Prov: GRACIELA LEAVITT MD 01/18/17 HPI - Abdominal Pain General Chief Complaint: Nausea,Vomiting,Diarrhea Stated Complaint: CHILLS,CONFUSION,FELLS FAINT Time Seen by Provider: 22:48 Source: patient History/Exam Limitations: no limitations (DIEGO WAN APRN) Time Seen by Provider: 22:48 (GRACIELA LEAVITT MD) HPI - Abdominal Pain Initial Comments She has had onset of vomiting and diarrhea over the last few days. Has had a low grade temp as well. She has vomited several times today and is having orang watery stools. She has three daughter's, an 8 month old, 4 year old, and 6 year old. Her 6 year old was just admitted to [facility] [place] for dehydration secondary to rotavirus and ecoli infection in her stool. Her 8 month old had it as well but they never formally tested her stools and she did not have to be admitted. Her 4 year old did not get sick. She did have a week of diarrhea prior to her girls getting sick and she figured that she had already been sick and got better but then the symptoms have returned. Her mother also has an autoimmune disorder and is prone to C Diff. She visits her mother often and is concerned this may be C Diff. Occurred At: home Onset: Gradual Duration: 1 week Quality: cramping Location: generalized abdomen Radiation: no radiation Activities at Onset: none Associated Symptoms: fever/chills (low grade), nausea/vomiting, DENIES: back pain, chest pain, diaphoresis, fatigue, headache, heartburn, rash, shortness of breath, swelling/mass in abdomen, syncope, weakness Hx of Similar Symptoms: No (NOLD,DIEGO N CHEMICAL ENGINEERING INTERN) Allergies: Coded Allergies: No Known Allergies (Unverified , 01/17/17) Past History Past Medical History Hematologic: anemia (NOLD,DIEGO N CHEMICAL ENGINEERING INTERN) Surgical History Denies Surgeries (NOLD,DIEGO N CHEMICAL ENGINEERING INTERN) Family History Family History: Negative (NOLD,DIEGO N CHEMICAL ENGINEERING INTERN) Social History Smoking Status: Never smoker Substance Use Type: does not use Alcohol Intake: none (NOLD,DIEGO N CHEMICAL ENGINEERING INTERN) Review of Systems Constitutional Constitutional: appetite decrease, chills, fatigue, fever, weakness, DENIES: dizziness (NOLD,DIEGO N CHEMICAL ENGINEERING INTERN) ENMT Mouth/Throat: DENIES: painful swallowing, scratchy throat, sore throat (NOLD, DIEGO N CHEMICAL ENGINEERING INTERN) Cardiovascular Cardiac: DENIES: chest pain, orthopnea Rhythm/Rate: DENIES: irregular beat, palpitations (NOLD,DIEGO N CHEMICAL ENGINEERING INTERN) Pulmonary Respiratory: DENIES: cough, dyspnea, sputum, tachypnea (NOLD,DIEGO N CHEMICAL ENGINEERING INTERN) GI Upper Abdomen: nausea, pain, vomiting Lower Abdomen: diarrhea, pain, DENIES: constipation (NOLD,DIEGO N CHEMICAL ENGINEERING INTERN) Musculoskeletal General: DENIES: pain (NOLD,DIEGO N CHEMICAL ENGINEERING INTERN) Integumentary Skin: DENIES: rash (NOLD,DIEGO N CHEMICAL ENGINEERING INTERN) Neurological General: DENIES: headache, numbness, tingling, weakness (NOLD,DIEGO N CHEMICAL ENGINEERING INTERN) Physical Exam General General Nourishment: well nourished, well developed, appears stated age, no acute distress, adult General Body Habitus: well groomed (NOLD,DIEGO N CHEMICAL ENGINEERING INTERN) Vitals and Pain First Documented Vital Signs Date Time Temp Pulse Resp B/P Pulse Ox O2 Delivery O2 Flow Rate FiO2 01/17/17 22:54 99.5 115 20 109/60 100 Room Air (GRACIELA LEAVITT MD) Vitals and Pain Weight: Kilograms: 63.300 Height (feet): 5 Height (inches): 1.00 Triage Pain Scale: (DIEGO WAN APRN) RN VS reviewed by Provider: Yes (DIEGO WAN APRN) Normal Exams: Neck: Full range of motion, without adenopathy, JVD, bruits or thyromegaly Chest/Resp: Clear all pham, with good airflow, and symmetry bilaterally CV: Regular rate and rhythm, without murmur or gallop, Pulses 2+ all extremities, capillary refill, <2 seconds all ext., no pedal edema noted Abdomen: Bowel sounds positive, soft, non-tender, non-distended, no hepatosplenomegaly, masses or bruits noted Lymphatic: No lymphadenopathy, or lymphedema noted Integumentary: No rashes, hives, or bruising noted Neurologic: Patient is alert, and oriented Psychiatric: Patient exhibits, appropriate attention, emotion and affect (DIEGO WAN APRN) Differential Diagnoses Considering: Dehydration, Food Poisoning, Gastroenteritis, Hyponatremia, Hypokalemia, Hypoglycemia, Other (E coli, C diff) (DIEGO WAN APRN) Progress Results/Orders Orders Procedure Category Date Status Time Cbc W/Auto LAB 01/17/17 Complete Diff-Reflex Manual Cmp - Comprehensive LAB 01/17/17 Complete Metabolic Iv Lock (Ed Only) EDM 01/17/17 Transmitted 23:03 Normal Saline (Normal PHA 01/17/17 Complete Saline Iv) 23:15 Ondansetron Inj PHA 01/17/17 Complete (Zofran) 23:15 UA, LAB 01/17/17 Complete Dip&Micro(Complete) & 23:34 LAB 01/18/17 Complete Qualitative, Urine 00:40 Ct Abd/Pelvis CT 01/18/17 Resulted W/Contrast Only 01:29 Iohexol (Omnipaque) PHA 01/18/17 Complete 01:37 Normal Saline (Ns) PHA 01/18/17 Complete 01:37 Saline Flush (Iv PHA 01/18/17 Complete Flush) 01:37 Metronidazole (Flagyl) PHA 01/18/17 Complete 03:30 (GRACIELA LEAVITT MD) Orders Procedure Category Date Status Time Cbc W/Auto LAB 01/17/17 Complete Diff-Reflex Manual Cmp - Comprehensive LAB 01/17/17 Complete Metabolic Iv Lock (Ed Only) EDM 01/17/17 Transmitted 23:03 Normal Saline (Normal PHA 01/17/17 Complete Saline Iv) 23:15 Ondansetron Inj PHA 01/17/17 Complete (Zofran) 23:15 UA, LAB 01/17/17 Complete Dip&Micro(Complete) & 23:34 LAB 01/18/17 Complete Qualitative, Urine 00:40 Ct Abd/Pelvis CT 01/18/17 Resulted W/Contrast Only 01:29 Iohexol (Omnipaque) PHA 01/18/17 Complete 01:37 Normal Saline (Ns) PHA 01/18/17 Complete 01:37 Saline Flush (Iv PHA 01/18/17 Complete Flush) 01:37 Metronidazole (Flagyl) PHA 01/18/17 Complete 03:30 (DIEGO WAN APRN) Lab Results Laboratory Tests Test 01/17/17 23:34 White Blood Count 9.6T/MM3 Red Blood Count 4.13M/MM3 Hemoglobin 12.3GM/DL Hematocrit 37.0% Mean Corpuscular Volume 89.6UM3 Mean Corpuscular Hemoglobin 29.8UUG Mean Corpuscular Hemoglobin Concent 33.2GM/DL RDW Standard Deviation 38.2FL Platelet Count 263T/MM3 Mean Platelet Volume 10.5UM3 Immature Granulocyte % (Auto) % Neutrophils (%) (Auto) % Lymphocytes (%) (Auto) % Monocytes (%) (Auto) % Eosinophils (%) (Auto) % Basophils (%) (Auto) % Absolute Immature Granulocyte (auto T/MM3 Absolute Neutrophils (auto) T/MM3 Absolute Lymphocytes (auto) T/MM3 Absolute Monocytes (auto) T/MM3 Absolute Eosinophils (auto) T/MM3 Absolute Basophils (auto) T/MM3 Neutrophils % (Manual) 85.0% Band Neutrophils % 1.0% Lymphocytes % (Manual) 6.0% Monocytes % (Manual) 5.0% Eosinophils % (Manual) 3.0% Absolute Neutrophils (Manual) 8.2T/MM3 Band Neutrophils # 0.1T/MM3 Lymphocytes # (Manual) 0.6T/MM3 Monocytes # (Manual) 0.5T/MM3 Eosinophils # (Manual) 0.3T/MM3 Red Cell Morphology Comment Normal Urine Collection Type Cleancatch-midstream Urine Color Yellow Urine Turbidity Clear Urine pH 5.5 Urine Specific [place]onderosa >=1.030 Urine Protein Negative Urine Glucose (UA) Negative Urine Ketones Trace Urine Blood 3+ Urine Nitrite Negative Urine Bilirubin Negative Urine Urobilinogen 0.2EU/DL Urine Leukocyte Esterase Negative Urine RBC 50-200/HPF Urine WBC 3-5/HPF Urine Squamous Epithelial Cells 0-5 Urine Bacteria None seen Urine Culture Indicated Cult not indicated Urine Test Negative Turbidity < 20 Sodium Level 141MEQ/L Potassium Level 3.7MEQ/L Chloride Level 108MEQ/L Carbon Dioxide Level 22MEQ/L Anion Gap 11MEQ/L Blood Urea Nitrogen 7.0MG/DL Creatinine 0.7MG/DL Glomerular Filtration Rate Calc 100 BUN/Creatinine Ratio 10RATIO Glucose Level 106MG/DL Calculated Osmolality 269MOSM/KG Calcium Level 9.0MG/DL Total Bilirubin 1.90MG/DL Icterus Index < 2 Aspartate Amino Transf (AST/SGOT) 18U/L Alanine Aminotransferase (ALT/SGPT) 21U/L Alkaline Phosphatase 56U/L Total Protein 6.7G/DL Albumin 3.9G/DL Globulin 2.8G/DL Albumin/Globulin Ratio 1.4RATIO Chemistry Specimen Hemolysis < 15 (GRACIELA LEAVITT MD) Lab Results Laboratory Tests Test 01/17/17 23:34 White Blood Count 9.6T/MM3 Red Blood Count 4.13M/MM3 Hemoglobin 12.3GM/DL Hematocrit 37.0% Mean Corpuscular Volume 89.6UM3 Mean Corpuscular Hemoglobin 29.8UUG Mean Corpuscular Hemoglobin Concent 33.2GM/DL RDW Standard Deviation 38.2FL Platelet Count 263T/MM3 Mean Platelet Volume 10.5UM3 Immature Granulocyte % (Auto) % Neutrophils (%) (Auto) % Lymphocytes (%) (Auto) % Monocytes (%) (Auto) % Eosinophils (%) (Auto) % Basophils (%) (Auto) % Absolute Immature Granulocyte (auto T/MM3 Absolute Neutrophils (auto) T/MM3 Absolute Lymphocytes (auto) T/MM3 Absolute Monocytes (auto) T/MM3 Absolute Eosinophils (auto) T/MM3 Absolute Basophils (auto) T/MM3 Neutrophils % (Manual) 85.0% Band Neutrophils % 1.0% Lymphocytes % (Manual) 6.0% Monocytes % (Manual) 5.0% Eosinophils % (Manual) 3.0% Absolute Neutrophils (Manual) 8.2T/MM3 Band Neutrophils # 0.1T/MM3 Lymphocytes # (Manual) 0.6T/MM3 Monocytes # (Manual) 0.5T/MM3 Eosinophils # (Manual) 0.3T/MM3 Red Cell Morphology Comment Normal Urine Collection Type Cleancatch-midstream Urine Color Yellow Urine Turbidity Clear Urine pH 5.5 Urine Specific Ponder[place] >=1.030 Urine Protein Negative Urine Glucose (UA) Negative Urine Ketones Trace Urine Blood 3+ Urine Nitrite Negative Urine Bilirubin Negative Urine Urobilinogen 0.2EU/DL Urine Leukocyte Esterase Negative Urine RBC 50-200/HPF Urine WBC 3-5/HPF Urine Squamous Epithelial Cells 0-5 Urine Bacteria None seen Urine Culture Indicated Cult not indicated Urine Test Negative Turbidity < 20 Sodium Level 141MEQ/L Potassium Level 3.7MEQ/L Chloride Level 108MEQ/L Carbon Dioxide Level 22MEQ/L Anion Gap 11MEQ/L Blood Urea Nitrogen 7.0MG/DL Creatinine 0.7MG/DL Glomerular Filtration Rate Calc 100 BUN/Creatinine Ratio 10RATIO Glucose Level 106MG/DL Calculated Osmolality 269MOSM/KG Calcium Level 9.0MG/DL Total Bilirubin 1.90MG/DL Icterus Index < 2 Aspartate Amino Transf (AST/SGOT) 18U/L Alanine Aminotransferase (ALT/SGPT) 21U/L Alkaline Phosphatase 56U/L Total Protein 6.7G/DL Albumin 3.9G/DL Globulin 2.8G/DL Albumin/Globulin Ratio 1.4RATIO Chemistry Specimen Hemolysis < 15 (NOLD,DIEGO N CHEMICAL ENGINEERING INTERN) Medications Current ED Medications Sodium Chloride (Normal Saline IV) 1,000 ml @ 1,000 mls/hr Q1H ONCE IV Last administered on 01/17/17 23:32; Start 01/17/17 at 23:15; Stop 01/18/17 at 00:14 ; Status DC Ondansetron HCl (Zofran) 4 mg O ONCE IV Last administered on 01/17/17 23:32; Start 01/17/17 at 23:15; Stop 01/17/17 at 23:16; Status DC Iohexol 1 bottle 1 bottle STK-MED ONCE .ROUTE ; Start 01/18/17 at 01:37; Stop at 01:38; Status DC Sodium Chloride (NS) 100 ml @ As Directed STK-MED ONCE .ROUTE ; Start 01/18/17 at 01:37; Stop 01/18/17 at 01:38; Status DC Sodium Chloride (Iv Flush) 10 ml STK-MED ONCE .ROUTE ; Start 01/18/17 at 01:37; Stop 01/18/17 at 01:38; Status DC Metronidazole (Flagyl) 500 mg O ONCE PO Last administered on 01/18/17 03:28; Start 01/18/17 at 03:30; Stop 01/18/17 at 03:31; Status DC (GRACIELA LEAVITT MD) Medications Current ED Medications Sodium Chloride (Normal Saline IV) 1,000 ml @ 1,000 mls/hr Q1H ONCE IV Last administered on 01/17/17 23:32; Start 01/17/17 at 23:15; Stop 01/18/17 at 00:14 ; Status DC Ondansetron HCl (Zofran) 4 mg O ONCE IV Last administered on 01/17/17 23:32; Start 01/17/17 at 23:15; Stop 01/17/17 at 23:16; Status DC Iohexol 1 bottle 1 bottle STK-MED ONCE .ROUTE ; Start 01/18/17 at 01:37; Stop at 01:38; Status DC Sodium Chloride (NS) 100 ml @ As Directed STK-MED ONCE .ROUTE ; Start 01/18/17 at 01:37; Stop 01/18/17 at 01:38; Status DC Sodium Chloride (Iv Flush) 10 ml STK-MED ONCE .ROUTE ; Start 01/18/17 at 01:37; Stop 01/18/17 at 01:38; Status DC Metronidazole (Flagyl) 500 mg O ONCE PO Last administered on 01/18/17 03:28; Start 01/18/17 at 03:30; Stop 01/18/17 at 03:31; Status DC (DIEGO WAN APRN) Progress Progress White cell count 9.6, hemoglobin 12.3. Total bilirubin is elevated. Other liver enzymes are normal. She does have a left shift and her white count. Patient is been unable to give us a stool sample, but was very concerned about discharging home without imaging done of her stomach. A CT scan of her abdomen was performed and colitis, either inflammatory or infectious, was identified. This fits with her symptoms. It still does not answer the question as to whether or not this needs to be treated. We discussed the options of not treating awaiting for the stool culture but she is very concerned about this. Based on symptoms, including a temperature of 100.2 while in the ED, I agreed to treat. We will start Flagyl 500 mg by mouth 3 times daily. I cautioned her about consuming any alcohol. She wanted to skip a pill on Tuesday because her birthdays this weekend, but I explained that it would still be in her system and if she was going to start the antibiotic, she needed to be consistent with it. Stool culture is still pending, patient will be sent with requisite equipment. (GRACIELA LEAVITT MD) DIEGO WAN APRN Jan 17, 2017 23:07 GRACIELA LEAVITT MD Jan 18, 2017 03:16
[2017-01-17] MEDS ORDERED: NORMAL SALINE 1,000 ML IV ONE (23:15)
[2017-01-17] MEDS ORDERED: ONDANSETRON 4mg/2ml INJECTION IV ONE (23:15)
--- OUTSIDE RECORDS SUMMARY | 2017-01-17 23:26 | XMS REPORT ---
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
--- OUTSIDE RECORDS SUMMARY | 2017-01-17 23:27 | XMS REPORT ---
Author Author GENERATED, SYSTEM Organization Unknown Address Unknown Phone Unavailable Care Team Providers Care Beam Doffer Name Role Phone MD COLE, RHONDA [phone] Reason For Visit Chief Complaint INDUCTION Social [...] the responsibility of the patient or patient pharmaceutical specialty representative to confirm the list of medications [...]
--- OUTSIDE RECORDS SUMMARY | 2017-01-17 23:27 | XMS REPORT ---
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
[2017-01-17 23:41] LABS: BLOOD, URINE 3+ (NEGATIVE); COLOR,URINE YELLOW (YELLOW); HGB - HEMOGLOBIN 12.3 GM/DL (12-16); LEUKOCYTE ESTERASE ,URINE NEGATIVE (NEGATIVE); MEAN CORPUSCULAR HGB 29.8 UUG (26-34); MEAN CORPUSCULAR HGB CONC(MCHC 33.2 GM/DL (31-37); MEAN CORPUSCULAR VOLUME 89.6 UM3 (80-100); MEAN PLATELET VOLUME 10.5 UM3 (9.4-12.4); NITRITE,URINE NEGATIVE (NEGATIVE); RED BLOOD COUNT 4.13 M/MM3 (4.00-5.20); UROBILINOGEN,URINE 0.2 EU/DL (NORMAL); WBC - WHITE BLOOD COUNT 9.6 T/MM3 (4.5-11.0)
[2017-01-17 23:49] LABS: BACTERIA,URINE NONE SEEN (NEGATIVE); RBC,URINE 50-200 /HPF (0-3); SQUAMOUS EPITHELIAL CELL,UR 0-5
[2017-01-17 23:53] LABS: POTASSIUM 3.7 MEQ/L (3.6-5)
[2017-01-17 23:54] LABS: ALBUMIN 3.9 G/DL (3.5-5.0); ALKALINE PHOSPHATASE 56 U/L (38-126); ANION GAP 11 MEQ/L (5-15); AST (SGOT) 18 U/L (14-36); BUN/CREATININE RATIO 10 RATIO (6-26); CHLORIDE 108 MEQ/L (98-107); CO2 - CARBON DIOXIDE 22 MEQ/L (22-30); CREATININE 0.7 MG/DL (0.7-1.2); GLOMERULAR FILTRATION RATE 100; SODIUM 141 MEQ/L (134-144)
[2017-01-17 23:57] LABS: BAND NEUTROPHILS # 0.1 T/MM3; EOSINOPHILS # (MANUAL) 0.3 T/MM3 (0-0.5); LYMPHOCYTES # (MANUAL) 0.6 T/MM3 (1-4.8); MONOCYTES # (MANUAL) 0.5 T/MM3 (0-0.8); NEUTROPHILS #(MANUAL)-ABSOLUTE 8.2 T/MM3 (1.8-7.7); TOTAL CELLS COUNTED 100 %
[2017-01-17 23:59] LABS: ALBUMIN/GLOBULIN RATIO 1.4 RATIO (1.1-2.2); TOTAL PROTEIN 6.7 G/DL (6.3-8.2)
[2017-01-18] LABS: GLUCOSE 106 MG/DL (65-110)
[2017-01-18 00:12] LABS: ALT (SGPT) 21 U/L (9-52)
--- NOTE | 2017-01-18 00:22 | NUR ---
BACK FROM XRAY
--- NOTE | 2017-01-18 01:00 | NUR ---
REPORT RECIEVED REPORT. I WILL RESUME CARE
[2017-01-18] MEDS ORDERED: SALINE FLUSH 10ml SYRINGE ONE (01:37)
[2017-01-18] MEDS ORDERED: IOHEXOL 300 MG/ML 100ml INJECTION ONE (01:37)
[2017-01-18] MEDS ORDERED: NORMAL SALINE 100 ML ONE (01:37)
--- NOTE | 2017-01-18 01:44 | NUR ---
IMAGING PT LEAVES WITH IMAGING STAFF AT THIS TIME.
--- NOTE | 2017-01-18 02:03 | NUR ---
RETURN PT RETURNS TO ROOM AT THIS TIME.
[2017-01-18] MEDS ORDERED: METR500T PO (03:19)
[2017-01-18] MEDS ORDERED: ONDA4TAB7 PO (03:19)
[2017-01-18] MEDS ORDERED: METRONIDAZOLE 500 MG TABLET PO ONE (03:30)
[2017-01-18 03:40] VITALS: BP 97/53; PULSE 99; RESP 16; TEMP 98.8; O2SAT 98
--- NOTE | 2017-01-18 03:40 | NUR ---
depart pt is given dismissal instructions with verbal understanding. script is given to pt. pt leaves ambulatory to ed registration desk. pt is also given supplies to collect the stool specimen. pt is instructed and understands
--- NOTE | 2017-01-18 07:57 | DI ---
Indication: ITS.REASON: abd pain, elevated Bili PROCEDURE: CT ABD/PELVIS W/CONTRAST ONLY: Encounter: Initial Comparison: None Technique: Axial CT images were performed through the abdomen and pelvis after the administration of intravenous contrast. Coronal and sagittal two-dimensional reformats. Automated Exposure Control and Iterative Reconstruction dose reducing techniques were utilized. Contrast: Omnipaque 300 87 mL Findings: The lung bases are clear. The liver is unremarkable. The gallbladder, spleen, pancreas, adrenal glands and right kidney are within normal limits. Small left renal cyst. No abdominal or pelvic adenopathy. Bladder is normal. Uterus is unremarkable for age. No significant free fluid or evidence of a bowel obstruction. There is possible wall thickening seen in the right and transverse colon which could be due to decompression or mild inflammation. Bone windows are unremarkable. Impression: Possible colitis, otherwise no acute disease process seen. There is a preliminary report by [employer]. .
== END 2017-01-18 03:40 | disposition home or self-care (01) ==
LOC: ED 22:39
DX: K52.9 Noninfective gastroenteritis and colitis, unspecified (principal)
CPT/HCPCS: 74177; 80053; 81001; 81025; 85025; 96361; 96374; 99284; J2405; J7030; J7050; Q9967

== ENCOUNTER → 2017-01-19 | Outpatient (CLI) | payer BC ==
[~2017-01-19] MED LIST: FEXO180T94 PO; HYDR-4009 PO; MECL-103 PO; METR500T PO; ONDA4TAB7 PO
== END ==
LOC: LABN 09:36
PROVIDERS: ATTEND Family Medicine
DX: R19.7 Diarrhea, unspecified (principal)
CPT/HCPCS: 87507

== ENCOUNTER 2017-01-21 10:18 | Emergency (ER) | payer BC ==
[~2017-01-21] VITALS: Ht 154.9 cm; Wt 61.1 kg
[~2017-01-21 10:18] MED LIST changes: -FEXO180T94 PO; -HYDR-4009 PO; -MECL-103 PO
--- OUTSIDE RECORDS SUMMARY | 2017-01-21 10:22 | XMS REPORT | Continuity of Care Document ---
Author Author [facility] Organization [facility] Address Unknown Phone Unavailable Care Team Providers Care Industrial Safety And Health Specialist Name Role Phone LELA FAITH DO Primary Care Physician [phone] Insurance Providers Guarantor Maria A Linn Address [address] [place] [address] Email [facility]CLINED 01-18-17 [facility] Policy Number [id number] Subscriber's Name Selvin Linn Relationship 01 Spouse Effective Date 09 Expiration Date 11 Advance Directives Directive Response Recorded Date/Time Advanced Directives Type None 01/17/17 10:54pm Chief Complaint and Reason for Visit Chief Complaint Nausea,Vomiting,Diarrhea Reason for Visit Colitis Problems Past Problems Medical Problem Onset Date Colitis Unknown Medications Current Home Medications Medication Dose Units Route Directions Days Qty Instructions Start Date Metronidazole (Flagyl) 500 Mg Tablet 500 Mg Oral Three Times A Day 30 Tablet 01/18/17 Ondansetron (Zofran Odt) 4 Mg Tab.rapdis 4 Mg Oral Q6h/0300,0900,1500,2100 for Nausea 30 Tablet Oral disintegrating tablet 01/18/17 Social History Query Response Start Date Stop Date Smoking Status Never smoker Hospital Discharge Instructions No hospital discharge instructions. Plan of Care Discharge Date 01/18/17 3:40am Disposition 01 DISCHARGED HOME, SELF-CARE Condition at Discharge Stable Instructions/Education Provided Colitis (ED) Prescriptions See Medication Section Referrals LELA FAITH DO Address: [address] [place] [address] Additional Instructions/Education Flagyl 500 mg, 3 times daily. Absolutely no alcohol while taking this medication. Please follow up with her primary care provider within the next week. You still have a stool culture ordered, we will send you with the requisite equipment for the sample. Functional Status No functional status results. Allergies, Adverse Reactions, Alerts No known allergies. Immunizations Query Response on File Recorded Date/Time Influenza Vaccine Hx NO 01/17/17 11:01pm Vital Signs Acute Vital Signs Vital Response Date/Time Temperature (Fahrenheit) 98.8 deg F (96.8 - 99.1) 01/18/2017 3:40am Temperature (Calculated Celsius) 37.16102 degrees C (36.0 - 37.3) 01/18/2017 3:40am Pulse Rate (adult) 99 bpm (60 - 100) 01/18/2017 3:40am Respiratory Rate 16 breaths/min (10 - 20) 01/18/2017 3:40am O2 Sat by Pulse Oximetry 98 % (90 - 100) 01/18/2017 3:40am Blood Pressure 97/53 mm Hg 01/18/2017 3:40am Height (Feet) 5 feet 01/17/2017 10:54pm Height (Inches) 1.00 inches 01/17/2017 10:54pm Weight (Kilograms) 63.300 kg 01/17/2017 10:54pm Body Mass Index (BMI) 26.0 01/17/2017 10:54pm Results Laboratory Results Test Name Result Units Flags Reference Collection Date/Time Result Date/ Time Comments White Blood Count 9.6 T/MM3 4.5-11.0 01/17/2017 11:34pm 01/17/2017 11: 41pm Red Blood Count 4.13 M/MM3 4.00-5.20 01/17/2017 11:34pm 01/17/2017 11: 41pm Hemoglobin 12.3 GM/DL 12-16 01/17/2017 11:34pm 01/17/2017 11:41pm Hematocrit 37.0 % 36-46 01/17/2017 11:34pm 01/17/2017 11:41pm Mean Corpuscular Volume 89.6 UM3 80-100 01/17/2017 11:34pm 01/17/2017 11:41pm Mean Corpuscular Hemoglobin 29.8 UUG 26-34 01/17/2017 11:34pm 2016 11:41pm Mean Corpuscular Hemoglobin Concent 33.2 GM/DL 31-37 01/17/2017 11:34pm 01/17/2017 11:41pm RDW Standard Deviation 38.2 FL 36.9-50.2 01/17/2017 11:34pm 01/17/2017 11:41pm Platelet Count 263 T/MM3 130-400 01/17/2017 11:34pm 01/17/2017 11:41pm Mean Platelet Volume 10.5 UM3 9.4-12.4 01/17/2017 11:34pm 01/17/2017 11 :41pm Neutrophils % (Manual) 85.0 % H 33-66 01/17/2017 11:34pm 01/17/2017 11: 57pm Band Neutrophils % 1.0 % 0-6 01/17/2017 11:34pm 01/17/2017 11:57pm Lymphocytes % (Manual) 6.0 % L 23-45 01/17/2017 11:34pm 01/17/2017 11: 57pm Monocytes % (Manual) 5.0 % 0-9.0 01/17/2017 11:34pm 01/17/2017 11:57pm Eosinophils % (Manual) 3.0 % 0-4 01/17/2017 11:34pm 01/17/2017 11:57pm Band Neutrophils # 0.1 T/MM3 01/17/2017 11:34pm 01/17/2017 11:57pm Absolute Neutrophils (Manual) 8.2 T/MM3 H 1.8-7.7 01/17/2017 11:34pm 11:57pm Lymphocytes # (Manual) 0.6 T/MM3 L 1-4.8 01/17/2017 11:34pm 01/17/2017 11:57pm Monocytes # (Manual) 0.5 T/MM3 0-0.8 01/17/2017 11:34pm 01/17/2017 11: 57pm Eosinophils # (Manual) 0.3 T/MM3 0-0.5 01/17/2017 11:34pm 01/17/2017 11 :57pm Red Cell Morphology Comment NORMAL 01/17/2017 11:34pm 01/17/2017 11 :57pm Icterus Index < 2 0-7 01/17/2017 11:34pm 01/17/2017 11:53pm Chemistry Specimen Hemolysis < 15 0-25 01/17/2017 11:34pm 01/17/2017 11:53pm 0-25: Specimen Exhibited No Hemolysis. Turbidity < 20 0-20 01/17/2017 11:34pm 01/17/2017 11:53pm Sodium Level 141 MEQ/L 134-144 01/17/2017 11:34pm 01/17/2017 11:54pm Potassium Level 3.7 MEQ/L 3.6-5 01/17/2017 11:34pm 01/17/2017 11:53pm Chloride Level 108 MEQ/L H 98-107 01/17/2017 11:34pm 01/17/2017 11:54pm Carbon Dioxide Level 22 MEQ/L 22-30 01/17/2017 11:34pm 01/17/2017 11: 54pm Anion Gap 11 MEQ/L 5-15 01/17/2017 11:34pm 01/17/2017 11:54pm Blood Urea Nitrogen 7.0 MG/DL 7-17 01/17/2017 11:34pm 01/17/2017 11: 54pm Creatinine 0.7 MG/DL 0.7-1.2 01/17/2017 11:34pm 01/17/2017 11:54pm BUN/Creatinine Ratio 10 RATIO 6-01/17/2017 11:34pm 01/17/2017 11: 54pm Glomerular Filtration Rate Calc 100 01/17/2017 11:34pm 01/17/2017 11:54pm Glucose Level 106 MG/DL 65-110 01/17/2017 11:34pm 01/18/2017 12:00am Calculated Osmolality 269 MOSM/KG 261-280 01/17/2017 11:342016 12:00am Calcium Level 9.0 MG/DL 8.4-10.2 01/17/2017 11:34pm 01/17/2017 11:54pm Total Bilirubin 1.90 MG/DL H 0.20-1.30 01/17/2017 11:34pm 01/17/2017 11: 54pm Alkaline Phosphatase 56 U/L 38-126 01/17/2017 11:34pm 01/17/2017 11: 54pm Total Protein 6.7 G/DL 6.3-8.2 01/17/2017 11:3401/17/2017 11:59pm Albumin 3.9 G/DL 3.5-5.0 01/17/2017 11:34pm 01/17/2017 11:54pm Globulin 2.8 G/DL 2.4-3.6 01/17/2017 11:34pm 01/17/2017 11:59pm Albumin/Globulin Ratio 1.4 RATIO 1.1-2.2 01/17/2017 11:34pm 01/17/2017 11:59pm Aspartate Amino Transf (AST/SGOT) 18 U/L 14-36 01/17/2017 11:34pm 01/17 11:54pm Alanine Aminotransferase (ALT/SGPT) 21 U/L 9-52 01/17/2017 11:34pm 12:12am Urine Collection Type CLEANCATCH-MIDSTREAM 01/17/2017 11:34pm 01/17 11:41pm Urine Color YELLOW YELLOW 01/17/2017 11:34pm 01/17/2017 11:41pm Urine Turbidity CLEAR CLEAR 01/17/2017 11:34pm 01/17/2017 11:41pm Urine Specific [place] >=1.030 H 1.015-1.025 01/17/2017 11:34pm 2016 11:41pm Urine pH 5.5 5.0-8.0 01/17/2017 11:34pm 01/17/2017 11:41pm Urine Leukocyte Esterase NEGATIVE NEGATIVE 01/17/2017 11:34pm 2016 11:41pm Urine Nitrite NEGATIVE NEGATIVE 01/17/2017 11:34pm 01/17/2017 11: 41pm Urine Protein NEGATIVE NEGATIVE 01/17/2017 11:34pm 01/17/2017 11: 41pm Urine Glucose (UA) NEGATIVE NEGATIVE 01/17/2017 11:34pm 01/17/2017 11 :41pm Urine Ketones TRACE A NEGATIVE 01/17/2017 11:34pm 01/17/2017 11:41pm Urine Urobilinogen 0.2 EU/DL NORMAL 01/17/2017 11:34pm 01/17/2017 11: 41pm Urine Bilirubin NEGATIVE NEGATIVE 01/17/2017 11:34pm 01/17/2017 11: 41pm Urine Blood 3+ A NEGATIVE 01/17/2017 11:34pm 01/17/2017 11:41pm Urine WBC 3-5 /HPF 0-5 01/17/2017 11:34pm 01/17/2017 11:49pm Urine RBC 50-200 /HPF H 0-3 01/17/2017 11:34pm 01/17/2017 11:49pm Urine Squamous Epithelial Cells 0-5 01/17/2017 11:34pm 01/17/2017 11:49pm Urine Bacteria NONE SEEN NEGATIVE 01/17/2017 11:34pm 01/17/2017 11: 49pm Urine Culture Indicated CULT NOT INDICATED 01/17/2017 11:34pm 01/17 11:49pm Procedures No known history of procedures. Encounters Encounter Location Arrival/Admit Date Discharge/Depart Date Attending Provider Departed Emergency Room [facility] 01/17/17 10:39pm 01/18/17 3: 40am GRACIELA LEAVITT MD Recent Diagnosis
--- OUTSIDE RECORDS SUMMARY | 2017-01-21 10:23 | XMS REPORT ---
Author [facility] Organization Unknown Address Unknown Phone Unavailable Care Team Providers Care Monogram Operator Name Role Phone MD COLE, RHONDA [phone] Reason For Visit Chief Complaint LABOR Social [...]
--- OUTSIDE RECORDS SUMMARY | 2017-01-21 10:24 | XMS REPORT ---
Author [facility] Organization Unknown Address Unknown Phone Unavailable Care Team Providers Care Fabric Separator Operator Name Role Phone MD COLE, RHONDA [phone] Reason For Visit Chief Complaint INDUCTION Social [...] the responsibility of the patient or patient customer relations representative to confirm the list of medications [...]
--- OUTSIDE RECORDS SUMMARY | 2017-01-21 10:24 | XMS REPORT ---
Author [facility] Organization Unknown Address Unknown Phone Unavailable Care Team Providers Care Marketing Research Intern Name Role Phone MD COLE, RHONDA [phone] Reason For Visit Chief Complaint LABOR PAIN [...]
[2017-01-21 10:27] VITALS: Ht 154.9 cm; Wt 61.1 kg
[2017-01-21] MEDS ORDERED: FEXO180T94 PO (10:48)
[2017-01-21] MEDS ORDERED: NORMAL SALINE 1,000 ML IV ONE ×2 (10:57→14:15)
[2017-01-21] MEDS ORDERED: ONDANSETRON 4mg/2ml INJECTION IV ONE (11:00)
[2017-01-21] MEDS ORDERED: MORPHINE SULFATE 2 MG SYRINGE IV ONE (11:00)
[2017-01-21] MEDS ORDERED: ACETAMINOPHEN 1,000 MG in RTU-SALINE 100 ML IV ONE (11:00)
--- OUTSIDE RECORDS SUMMARY | 2017-01-21 11:14 | XMS REPORT ---
Author [facility] Organization Unknown Address Unknown Phone Unavailable Care Team Providers Care Card Feeder Name Role Phone MD COLE, RHONDA [phone] Reason For Visit Chief Complaint LABOR Social [...]
--- OUTSIDE RECORDS SUMMARY | 2017-01-21 11:16 | XMS REPORT ---
Author [facility] Organization Unknown Address Unknown Phone Unavailable Care Team Providers Care Vice President Marketing & Development Name Role Phone MD COLE, RHONDA [phone] Reason For Visit Chief Complaint LABOR PAIN [...]
--- OUTSIDE RECORDS SUMMARY | 2017-01-21 11:16 | XMS REPORT ---
Author [facility] Organization Unknown Address Unknown Phone Unavailable Care Team Providers Care Family Law Legal Assistant Name Role Phone MD COLE, RHONDA [phone] Reason For Visit Chief Complaint INDUCTION Social [...] the responsibility of the patient or patient guest services representative to confirm the list of medications [...]
[2017-01-21 11:25] LABS: BASOPHILS % (AUTO) 0.4 % (0-2); EOSINOPHILS % (AUTO) 0.8 % (0-4); HCT - HEMATOCRIT 43.9 % (36-46); HGB - HEMOGLOBIN 14.4 GM/DL (12-16); LYMPHOCYTES # (AUTO) 1.2 T/MM3 (1-4.8); LYMPHOCYTES % (AUTO) 22.7 % (23-45); MEAN CORPUSCULAR HGB 29.4 UUG (26-34); MEAN CORPUSCULAR HGB CONC(MCHC 32.8 GM/DL (31-37); MEAN CORPUSCULAR VOLUME 89.8 UM3 (80-100); MEAN PLATELET VOLUME 10.7 UM3 (9.4-12.4); MONOCYTES # (AUTO) 0.5 T/MM3 (0-0.8); MONOCYTES % (AUTO) 9.2 % (0-9.0); NEUTROPHILS #(AUTO)-ABSOLUTE 3.4 T/MM3 (1.8-7.7); NEUTROPHILS % (AUTO) 66.9 % (33-66); RED BLOOD COUNT 4.89 M/MM3 (4.00-5.20); WBC - WHITE BLOOD COUNT 5.1 T/MM3 (4.5-11.0)
[2017-01-21 11:35] LABS: ALBUMIN 4.8 G/DL (3.5-5.0); ALBUMIN/GLOBULIN RATIO 1.3 RATIO (1.1-2.2); ALKALINE PHOSPHATASE 54 U/L (38-126); ALT (SGPT) 29 U/L (9-52); ANION GAP 17 MEQ/L (5-15); AST (SGOT) 17 U/L (14-36); BUN/CREATININE RATIO 11 RATIO (6-26); CALCIUM 9.4 MG/DL (8.4-10.2); CHLORIDE 110 MEQ/L (98-107); CO2 - CARBON DIOXIDE 19 MEQ/L (22-30); CREATININE 0.7 MG/DL (0.7-1.2); GLOMERULAR FILTRATION RATE 100; GLUCOSE 93 MG/DL (65-110); LIPASE 98 U/L (23-300); POTASSIUM 3.4 MEQ/L (3.6-5); SODIUM 146 MEQ/L (134-144); TOTAL PROTEIN 8.4 G/DL (6.3-8.2)
--- NOTE | 2017-01-21 12:01 | NUR ---
STATUS PATIENT HAD ABOUT 50 ML OF DIARRHEA, DARK BROWN.
--- NOTE | 2017-01-21 12:37 | NUR ---
STATUS PATIENT STATES THAT SHE IS FEELING MUCH BETTER. IN BED RESTING WITH NO CONCERNS NOTED.
--- NOTE | 2017-01-21 13:12 | NUR ---
STATUS PATIENT IS RESTING IN BED, NO CONCERNS NOTED. IV MEDS/FLUIDS CONTINUING.
--- NOTE | 2017-01-21 13:36 | NUR ---
STATUS PATIENT IS RESTING IN BED. IVF CONTINUING. NO COMPLAINTS NOTED.
--- NOTE | 2017-01-21 14:03 | NUR ---
PROVIDER DR LEAVITT IN TO SEE PATIENT.
--- NOTE | 2017-01-21 14:28 | NUR ---
TO XRAY PER CART. IVF CONTINUING.
--- NOTE | 2017-01-21 14:37 | NUR ---
BACK FROM XRAY
--- NOTE | 2017-01-21 14:56 | DI ---
Indication: ITS.REASON: abd pain PROCEDURE: KUB W/UPRIGHT: Encounter: Initial Comparison: None Findings: The visualized lung bases are clear. There is no free air on the upright view. The bowel gas pattern is nonobstructive and nonspecific. Gas is seen in nondilated small and large bowel to the level of the rectum. Moderate stool is seen throughout the colon. The bony structures are grossly unremarkable. Metallic density overlying the left flank, presumably external to the patient. Multiple tiny densities projecting over the left abdomen could also be artifactual or represent ingested medication contents within the bowel. Impression: Nonobstructive nonspecific bowel gas pattern. .
--- NOTE | 2017-01-21 15:34 | ERPDOC ---
Departure Disposition Decision Date: Jan 21, 2017 Disposition Decision Time: 15:53 Disposition: 01 DISCHARGED HOME, SELF-CARE Impression Impression Impression: Primary Impression: Colitis Additional Impression: Dehydration Severity: Moderate Condition: Improved Seen By: Physician only Referrals: LELA FAITH DO (Family) Patient Instructions: Acute Diarrhea (ED) Problems/Meds/Labs Reviewed?: Yes Medications reviewed and manag: Yes Additional Instructions: Please take the Zofran or the meclizine as prescribed. Please take the Lortab up to twice daily if needed for cramping. This is a limited prescription. You can come daily to the infusion clinic for a liter of normal saline if needed. Follow up care ordered?: Yes Mental Status: Alert, Oriented Scripts Hydrocodone/Acetaminophen (Lortab 5-325 mg Tablet) 1 Each Tablet 1 TAB PO BID for PAIN, #10 TAB Prov: GRACIELA LEAVITT MD 01/21/17 Meclizine HCl (Meclizine HCl) 25 Mg Tablet 25 MG PO QID Y for NAUSEA, #30 TAB 0 Refills Prov: GRACIELA LEAVITT MD 01/21/17 Ondansetron (Zofran Odt) 4 Mg Tab.rapdis 4 MG PO Q6HR for NAUSEA, #30 TAB Oral disintegrating tablet Prov: GRACIELA LEAVITT MD 01/21/17 HPI - Abdominal Pain General Chief Complaint: Nausea,Vomiting,Diarrhea Stated Complaint: DIARRHEA, UNABLE TO KEEP ANYTHING DOWN Time Seen by Provider: 10:53 HPI - Abdominal Pain Initial Comments 26-year-old female returns to ED with abdominal pain and cramping. She was diagnosed with Escherichia coli colitis based on stool PCR, has been taking oral fluids in an attempt to maintain hydrated, but has episodes of explosive diarrhea and is unable to keep anything down. She has found that the IV fluids she received last time it the difference in how she felt, she would like to repeat that and make sure that nothing else is developing. 2 of her 3 daughters have been diagnosed with Escherichia coli colitis, as well as her self. Allergies: Coded Allergies: No Known Allergies (Unverified , 01/17/17) Past History Patient Medical History Problem List Updates: Escherichia coli colitis Past Medical History Hematologic: anemia Surgical History Denies Surgeries Social History Smoking Status: Never smoker Substance Use Type: does not use Alcohol Intake: none Record Review Pertinent history updated: Yes Review of Systems GI Upper Abdomen: see HPI Lower Abdomen: see HPI Musculoskeletal General: see HPI All other Systems All Other Systems: Reviewed and Negative Physical Exam General General Nourishment: well developed, appears stated age Distress Description Patient is weak and tired Vitals and Pain First Documented Vital Signs Date Time Temp Pulse Resp B/P Pulse Ox O2 Delivery O2 Flow Rate FiO2 01/21/17 10:27 98.0 87 20 117/64 100 Room Air Weight: Kilograms: 61.100 Height (feet): 5 Height (inches): 1.00 Triage Pain Scale: Normal Exams: Head: Normocephalic w/o trauma Neck: Full range of motion, without adenopathy, JVD, bruits or thyromegaly Chest/Resp: Clear all pham, with good airflow, and symmetry bilaterally CV: Regular rate and rhythm, without murmur or gallop, Pulses 2+ all extremities, capillary refill, <2 seconds all ext., no pedal edema noted Abdomen: Bowel sounds positive, non-distended, no hepatosplenomegaly, masses or bruits noted Neurologic: Patient is alert, and oriented, cranial nerves, motor/sensory/ cerebellar, exams w/o gross deficits, to observation Psychiatric: Patient exhibits, appropriate attention, emotion and affect Abdomen (brief) Comments Somewhat hyperactive bowel sounds, diffusely tender to palpation, no specific point tenderness. Differential Diagnoses Considering: Dehydration, Food Poisoning, Gastroenteritis, Giardiasis, Intussusception, Ischemic Bowel, Pancreatitis, Pyelonephritis, Renal Colic, Rotavirus, Sigmoid Volvulus Progress Results/Orders Orders Procedure Category Date Status Time Cmp - Comprehensive LAB 01/21/17 Complete Metabolic 10:57 Cbc W/Auto LAB 01/21/17 Complete Diff-Reflex Manual 10:57 Lipase LAB 01/21/17 Complete 10:57 Iv Lock (Ed Only) EDM 01/21/17 Transmitted 10:57 Normal Saline (Normal PHA 01/21/17 Complete Saline Iv) 10:57 Acetaminophen PHA 01/21/17 Complete (Ofirmev) 11:00 Morphine Sulfate PHA 01/21/17 Complete (Morphine) 11:00 Ondansetron Inj PHA 01/21/17 Complete (Zofran) 11:00 Kub W/Upright RAD 01/21/17 Resulted 13:59 Normal Saline (Normal PHA 01/21/17 Complete Saline Iv) 14:15 LAB 01/21/17 Complete Qualitative, Serum Lab Results Laboratory Tests Test 01/21/17 11:17 White Blood Count 5.1T/MM3 Red Blood Count 4.89M/MM3 Hemoglobin 14.4GM/DL Hematocrit 43.9% Mean Corpuscular Volume 89.8UM3 Mean Corpuscular Hemoglobin 29.4UUG Mean Corpuscular Hemoglobin Concent 32.8GM/DL RDW Standard Deviation 39.6FL Platelet Count 292T/MM3 Mean Platelet Volume 10.7UM3 Immature Granulocyte % (Auto) 0.0% Neutrophils (%) (Auto) 66.9% Lymphocytes (%) (Auto) 22.7% Monocytes (%) (Auto) 9.2% Eosinophils (%) (Auto) 0.8% Basophils (%) (Auto) 0.4% Absolute Immature Granulocyte (auto 0.00T/MM3 Absolute Neutrophils (auto) 3.4T/MM3 Absolute Lymphocytes (auto) 1.2T/MM3 Absolute Monocytes (auto) 0.5T/MM3 Absolute Eosinophils (auto) 0.0T/MM3 Absolute Basophils (auto) 0.0T/MM3 Turbidity < 20 Sodium Level 146MEQ/L Potassium Level 3.4MEQ/L Chloride Level 110MEQ/L Carbon Dioxide Level 19MEQ/L Anion Gap 17MEQ/L Blood Urea Nitrogen 8.0MG/DL Creatinine 0.7MG/DL Glomerular Filtration Rate Calc 100 BUN/Creatinine Ratio 11RATIO Glucose Level 93MG/DL Calculated Osmolality 279MOSM/KG Calcium Level 9.4MG/DL Total Bilirubin 2.00MG/DL Icterus Index < 2 Aspartate Amino Transf (AST/SGOT) 17U/L Alanine Aminotransferase (ALT/SGPT) 29U/L Alkaline Phosphatase 54U/L Total Protein 8.4G/DL Albumin 4.8G/DL Globulin 3.6G/DL Albumin/Globulin Ratio 1.3RATIO Lipase 98U/L Human Chorionic Gonadotropin, Qual Negative Chemistry Specimen Hemolysis < 15 Medications Current ED Medications Sodium Chloride 1,000 ml @ 1,000 mls/hr Q1H ONCE IV Last administered on 11:29; Start 01/21/17 at 10:57; Stop 01/21/17 at 11:56; Status DC Acetaminophen/ Sodium Chloride (Ofirmev) 200 ml @ 400 mls/hr O ONCE IV Last administered on 01/21/17 11:29; Start 01/21/17 at 11:00; Stop 01/21/17 at 11:29 ; Status DC Morphine Sulfate (Morphine) 2 mg O ONCE IV Last administered on 01/21/17 11: 29; Start 01/21/17 at 11:00; Stop 01/21/17 at 11:01; Status DC Ondansetron HCl 4 mg 4 mg O ONCE IV Last administered on 01/21/17 11:29; Start 01/21/17 at 11:00; Stop 01/21/17 at 11:02; Status DC Sodium Chloride (Normal Saline IV) 1,000 ml @ 1,000 mls/hr Q1H ONCE IV Last administered on 01/21/17 14:17; Start 01/21/17 at 14:15; Stop 01/21/17 at 15:14 ; Status DC Progress Progress Stool PCR performed between last year visit in this ER visit, patient was diagnosed with Escherichia coli colitis. We discussed that we would not directly treat this, she can stop the Flagyl that she was taking. I'm certain the Flagyl has contributed to some stomach ache and pain. Patient is trying to maintain hydration, recommended we do another reader of normal saline today, we' ll ultimately did 2 L. This helped her feel much better. She was given Zofran 4 mg and morphine 2 mg as well as Toradol 15 mg IV. She'll be discharged with a prescription for Zofran and a prescription for Antivert. Also small prescription for Lortab to be used on occasion with the cramping if needed. I would like her to stay hydrated over the weekend, I gave her a outpatient order for infusion lab for 1 L normal saline daily IV. She did try and fill the Zofran , but was told prescription was $140 for 30 tablets. She is going to try a different pharmacy, I also gave her the Antivert prescription in case. GRACIELA LEAVITT MD Jan 21, 2017 15:34
--- NOTE | 2017-01-21 15:50 | NUR ---
PROVIDER DR LEAVITT IN TO SEE PATIENT.
[2017-01-21] MEDS ORDERED: ONDA4TAB7 PO (15:57)
[2017-01-21] MEDS ORDERED: MECL-103 PO (15:57)
[2017-01-21] MEDS ORDERED: HYDR-4009 PO (15:57)
[2017-01-21 16:11] VITALS: BP 128/68; PULSE 74; RESP 18; TEMP 98; O2SAT 98
== END 2017-01-21 16:11 | disposition home or self-care (01) ==
LOC: ED 10:18
DX: K52.9 Noninfective gastroenteritis and colitis, unspecified (principal); E86.0 Dehydration
CPT/HCPCS: 74020; 80053; 83690; 84703; 85025; 96361; 96374; 96375; 99284; J0131; J2405; J7030; J7050